=== PATIENT | male | born 1950 | race Caucasian/White ===

== ENCOUNTER 2018-03-11 08:15 | Outpatient (RCR) | payer MEDICARE, SELFPAY ==
--- NOTE | 2018-01-01 16:51 | PT.OIE ---
Current Diagnoses Soft tissue disorder, unspecified (01/01/18) Abnormal posture (01/01/18) Weakness (01/01/18) Provider Visit Care Team Role Provider Type Bari Hoang MD Family Provider Physician Primary Care Provider Specialty: Family Practice Address: [address] [place] [address], [id number] Email: Werner Sterling MD Attending Provider Physician Specialty: Orthopedic Surgery Address: [address] [place] [address], [id number] Email: [email or web address] Initial Evaluation PT-OP-A Visit Information Start: 01/01/18 09:05 Freq: Status: Active Protocol: Document 01/01/18 09:06 [facility] (Rec: 01/01/18 16:49 [facility] [id number]) Out-Patient Physical Therapy Visit Information Visit Information Visit Type Initial Evaluation Visit Start Time 09:06 Visit Stop Time 10:01 Total Visit Minutes 55 Visit Number 1 Number of ECHOCARDIOGRAPH TECHNICIAN Visits 0 Evaluation Information Evaluation Date 01/01/18 PT-OP-B Current Condition Start: 01/01/18 09:05 Freq: Status: Active Protocol: Document 01/01/18 09:06 [facility] (Rec: 01/01/18 09:14 [facility] [id number]) Current Condition History of Current Condition Onset Date 2 months History of Current Condition started with intense pain left c/s going across shoulder blade and top of shoulder, turned into a tingling a few weeks ago. Pain now less, tingling seems to be getting worse. Has been working out quite a bit in the gym, hasn't been doing neck stretches, but has been doing RC exercises. Only different thing was holding lateral raises for a few seconds because frustrated with not gaining strength. Additionally reports he has been bent over a lot doing weeding. Aggravated by any forward head and shoulder position/activities. Prior Treatments and Tests 3 x-rays [address] Dr[address] Sterling's office . Treatment Goals Patient/Caregiver Goals Minimize pain and tingling and return to usual activities without symptoms Prior Functional Status Baseline Function- ADL's Independent Baseline Function- Mobility Independent Baseline Function- Other chronic shoulder pain tong , s/ p bilateral surgeries. PT-OP-C Subjective Start: 01/01/18 09:05 Freq: Status: Active Protocol: Document 01/01/18 09:06 [facility] (Rec: 01/01/18 16:49 [facility] [id number]) OP-PT Pain Assessment Pain Assessment Grid Paper Pain Assessment Grid Completed Yes Location Left Shoulder Pain Location Details upper trap region Intensity 4 Scale Used Numeric (1 - 10) Description Aching Shooting Description- Other tingling Frequency Frequent Radiating Location up into neck and down across shoulder blade Pain Aggravating Factors Position Activity Pain Alleviating Factors None Patient Stated Pain Goal 0 Home Pain Medication Use Pain Medications Used No Pain Behaviors Pain Behaviors Facial Grimacing Guarding Wincing PT-OP-E Functional Tests Start: 01/01/18 16:07 Freq: Status: Active Protocol: Document 01/01/18 09:06 [facility] (Rec: 01/01/18 16:49 [facility] [id number]) Functional Tests Apley's Scratch Test Action 1: The subject is instructed to touch the opposite shoulder with his/her hand. This motion checks Glenohumeral adduction, internal rotation , horizontal adduction and scapular protraction Action 2: The subject is instructed to place his/her arm overhead and reach behind the neck to touch his/her upper back. This motion checks Glenohumeral abduction, external rotation and scapular upward rotation and elevation. Action 3: The subject puts his/her hand on the lower back and reaches upward as far as possible. This motion checks glenohumeral adduction, internal rotation and scapular retraction with downward rotation Action 1- Left top of shoulder Action 1- Right posterior shoulder Action 2- Left T10 Action 2- Right T7 Action 3- Left T10 Action 3- Right T7 PT-OP-F Manual Assessment Start: 01/01/18 16:07 Freq: Status: Active Protocol: Document 01/01/18 09:06 [facility] (Rec: 01/01/18 16:49 [facility] [id number]) Manual Assessments Soft Tissue Assessment Soft Tissue Mobility Assessment decreased mobility of upper traps tong, left greater than right Other Manual Assessments Other Manual Assessments palpable elevation of left rib PT-OP-H Neuro Start: 01/01/18 16:07 Freq: Status: Active Protocol: Document 01/01/18 09:06 [facility] (Rec: 01/01/18 16:49 [facility] [id number]) Sensation Evaluation Gross Sensation Gross Sensation WNL Sensation Description Tingling PT-OP-J Posture/Palpation/Skin Start: 01/01/18 16:07 Freq: Status: Active Protocol: Document 01/01/18 09:06 [facility] (Rec: 01/01/18 16:49 [facility] [id number]) Posture Evaluation Position Sitting Head/C-Spine Posture Forward Head T-Spine Posture Increased Kyphosis L-Spine Posture Flattened Shoulder Posture (L) Rounded (R) Rounded (L) Forward (R) Forward (L) Elevated Scapula Posture (L) Protracted (R) Protracted Arm Posture (L) Internally Rotated (R) Internally Rotated PT-OP-K Range of Motion Start: 01/01/18 16:07 Freq: Status: Active Protocol: Document 01/01/18 09:06 [facility] (Rec: 01/01/18 16:49 [facility] [id number]) Cervical Spine Range of Motion Cervical Spine Active Testing Position Sitting Flexion 48 Extension 50 Rotation Left 51 Rotation Right 62 Lateral Flexion Left 32 Lateral Flexion Right 45 ROM Limitations Soft Tissue Tightness Shoulder Goniometric Range of Motion Shoulder Measured in Degrees Active Shoulder ROM WFL Yes Testing Position Sitting PT-OP-L Special Tests Start: 01/01/18 16:07 Freq: Status: Active Protocol: Document 01/01/18 09:06 [facility] (Rec: 01/01/18 16:49 [facility] [id number]) Special Tests Cervical Spine Special Tests Traction Test Results negative for change in symptoms Passive Neck Flexion Test Results muscle tightness Foraminal Compression Test Results negative Upper Limb Tension Test Test Results positive left Shoulder Special Tests Drop Arm Rotator Cuff Test Results negative Elevation Impingement Test Results positive AC Joint Compression Test Results negative PT-OP-M Strength Start: 01/01/18 16:07 Freq: Status: Active Protocol: Document 01/01/18 09:06 [facility] (Rec: 01/01/18 16:49 [facility] [id number]) Cervical Spine Strength Cervical Spine Manual Muscle Testing Testing Position Sitting Flexion (C1-2) 4+ Good+ Extension 4+ Good+ Rotation Left 4+ Good+ Rotation Right 4+ Good+ Lateral Flexion Left (C3) 4+ Good+ Lateral Flexion Right (C3) 4+ Good+ Shoulder Strength Shoulder Manual Muscle Testing Left Flexion 5 Normal Extension 5 Normal Abduction (C5) 5 Normal Adduction 5 Normal External Rotation 4- Good- Internal Rotation 4 Good Right Flexion 5 Normal Extension 5 Normal Abduction (C5) 5 Normal Adduction 5 Normal External Rotation 4 Good Internal Rotation 4+ Good+ Hand Fresh Foods Technician/Pinch Strength Hand Dominance Hand Dominance Right Hand Strength Left Comments 87, 92, 86 Right Comments 100, 92, 100 PT-OP-Q Treatments Start: 01/01/18 16:07 Freq: Status: Active Protocol: Document 01/01/18 09:06 [facility] (Rec: 01/01/18 16:49 [facility] [id number]) Manual Therapy Treatment Soft Tissue Mobilization 1 Body Location cervical spine Mobilization Type Myofascial Release Intensity/Depth Moderate Body Position Supine Manual Traction Cervical Body Position Supine Reps/Duration 3 min Self-Care/Home Management Treatment Education Patient Education Home Exercise Program Other Education Patient instructed to resume supine anterior chest stretch, sidelying reach and roll, serratus punch, and neck stretches from prior HEP and work on decreasing activities with forward head and shoulders. PT-OP-R Modalities Start: 01/01/18 16:07 Freq: Status: Active Protocol: Document 01/01/18 09:06 [facility] (Rec: 01/01/18 16:49 [facility] [id number]) Hot Pack/Cold Pack Treatment Hot Pack Location c/s Patient Position Hooklying Treatment Duration (minutes) 15 Patient Tolerance Good PT-OP-T Assessment and Plan Start: 01/01/18 16:07 Freq: Status: Active Protocol: Document 01/01/18 09:06 [facility] (Rec: 01/01/18 16:49 [facility] [id number]) Physical Therapy Assessment Rehab Potential Rehabilitation Potential Good Evaluation Complexity Number of Personal Factors/Comorbidities 1-2 Number of Body Systems Impaired 3 Clinical Presentation at Evaluation Evolving Impairments Impairments Activity Tolerance Functional Activities Pain Posture Goals Three Impairment activity tolerance Short Term Goal (STG) Patient will resume 50% of usual activities without an increase in symptoms STG Duration 6 wks Shelter Goal (LTG) Patient will resume 100% of usual activities without an increase in symptoms Two Impairment posture Short Term Goal (STG) Patient will demonstrate improved postural alignment and awareness; be able to self -correct with cues STG Duration 6 wks Subcontract Administrator Goal (LTG) Patient will demonstrate improved postural habits and body mechanics for usual activities One Impairment neck disability index score Short Term Goal (STG) Decrease score from 28 to 18 STG Duration 6 wks Subcontract Administrator Goal (LTG) Decrease score to no greater than 5% with resumption of all usual activities LTG Duration 12 wks Assessment Summary Assessment Patient presents with function -limiting pain in cervical spine and shoulder on left which appears postural/ positional and activity related, as well as due to muscle imbalance which have elvated his left rib and caused nerve compression due to soft tissue tightness in left cervical spine and shoulder. should benefit from PT for pain management, flexibility, manual techniques , ther ex, modalities PRN Physical Therapy Plan Frequency and Duration Frequency of Treatment 2x/Week Duration of Treatment 3 months Plan of Care Start Date 01/01/18 Plan of Care End Date 04/03/18 Therapeutic Interventions Therapeutic Interventions Home Exercise Program Manual Therapy Neuromuscular Re-education Patient/Caregiver Education Self-Care/Home Management Soft Tissue Mobilization Taping Therapeutic Activities Therapeutic Exercises Modalities Cold Pack/Ice Massage Electric Stimulation Hot Packs Infrared Therapy Iontophoresis Traction- Mechanical Ultrasound Other Therapeutic Interventions nerve gliding and flossing Please Sign and Return: I have reviewed this Plan of Care and certify that the skilled therapy services above are required to meet the patient???s needs. Physician Signature Date Printed Name and Credentials Clinical Instructor Signature Printed Name and Credentials
--- NOTE | 2018-01-01 16:51 | PT.OPPOC ---
Current Diagnoses Soft tissue disorder, unspecified (01/01/18) Abnormal posture (01/01/18) Weakness (01/01/18) Provider Visit Care Team Role Provider Type Bari Hoang MD Family Provider Physician Primary Care Provider Specialty: Family Practice Address: [address] [place] [address], [phone] Email: Werner Sterling MD Attending Provider Physician Specialty: Orthopedic Surgery Address: [address] [place] [address], [phone] Email: [email or web address] Plan Of Care PT-OP-T Assessment and Plan Start: 01/01/18 16:07 Freq: Status: Active Protocol: Document 01/01/18 09:06 [facility] (Rec: 01/01/18 16:49 [facility] [id number]) Physical Therapy Assessment Rehab Potential Rehabilitation Potential Good Evaluation Complexity Number of Personal Factors/Comorbidities 1-2 Number of Body Systems Impaired 3 Clinical Presentation at Evaluation Evolving Impairments Impairments Activity Tolerance Functional Activities Pain Posture Goals Three Impairment activity tolerance Short Term Goal (STG) Patient will resume 50% of usual activities without an increase in symptoms STG Duration 6 wks Residential Goal (LTG) Patient will resume 100% of usual activities without an increase in symptoms Two Impairment posture Short Term Goal (STG) Patient will demonstrate improved postural alignment and awareness; be able to self -correct with cues STG Duration 6 wks Diesel Crane Operator Goal (LTG) Patient will demonstrate improved postural habits and body mechanics for usual activities One Impairment neck disability index score Short Term Goal (STG) Decrease score from 28 to 18 STG Duration 6 wks Residential Goal (LTG) Decrease score to no greater than 5% with resumption of all usual activities LTG Duration 12 wks Assessment Summary Assessment Patient presents with function -limiting pain in cervical spine and shoulder on left which appears postural/ positional and activity related, as well as due to muscle imbalance which have elvated his left rib and caused nerve compression due to soft tissue tightness in left cervical spine and shoulder. should benefit from PT for pain management, flexibility, manual techniques , ther ex, modalities PRN Physical Therapy Plan Frequency and Duration Frequency of Treatment 2x/Week Duration of Treatment 3 months Plan of Care Start Date 01/01/18 Plan of Care End Date 04/03/18 Therapeutic Interventions Therapeutic Interventions Home Exercise Program Manual Therapy Neuromuscular Re-education Patient/Caregiver Education Self-Care/Home Management Soft Tissue Mobilization Taping Therapeutic Activities Therapeutic Exercises Modalities Cold Pack/Ice Massage Electric Stimulation Hot Packs Infrared Therapy Iontophoresis Traction- Mechanical Ultrasound Other Therapeutic Interventions nerve gliding and flossing Plan of Care Dates Plan of Care Start Date 01/01/18 Plan of Care End Date 04/03/18 Please Sign and Return: I have reviewed this Plan of Care and certify that the skilled therapy services above are required to meet the patient???s needs. Physician Signature Date Printed Name and Credentials Clinical Instructor Signature Printed Name and Credentials
--- NOTE | 2018-01-05 09:26 | PT.OTN ---
Physical Therapy Treatment Note PT-OP-A Visit Information Start: 01/01/18 09:05 Freq: Status: Active Protocol: Document 01/05/18 08:12 [facility] (Rec: 01/05/18 09:00 [facility] [id number]) Out-Patient Physical Therapy Visit Information Visit Information Visit Type Treatment Note Visit Start Time 08:13 Visit Stop Time 09:13 Total Visit Minutes 60 Visit Number 2 Number of SPECIAL CLIENT BUS DRIVER Visits 0 Evaluation Information Evaluation Date 01/01/18 PT-OP-B Current Condition Start: 01/01/18 09:05 Freq: Status: Active Protocol: Document 01/01/18 09:06 [facility] (Rec: 01/01/18 09:14 [facility] [id number]) Current Condition History of Current Condition Onset Date 2 months History of Current Condition started with intense pain left c/s going across shoulder blade and top of shoulder, turned into a tingling a few weeks ago. Pain now less, tingling seems to be getting worse. Has been working out quite a bit in the gym, hasn't been doing neck stretches, but has been doing RC exercises. Only different thing was holding lateral raises for a few seconds because frustrated with not gaining strength. Additionally reports he has been bent over a lot doing weeding. Aggravated by any forward head and shoulder position/activities. Prior Treatments and Tests 3 x-rays [address] Dr[address] Sterling's office . Treatment Goals Patient/Caregiver Goals Minimize pain and tingling and return to usual activities without symptoms Prior Functional Status Baseline Function- ADL's Independent Baseline Function- Mobility Independent Baseline Function- Other chronic shoulder pain tong , s/ p bilateral surgeries. PT-OP-C Subjective Start: 01/01/18 09:05 Freq: Status: Active Protocol: Document 01/05/18 08:12 [facility] (Rec: 01/05/18 09:00 [facility] [id number]) OP-PT Subjective Patient Comments Patient Comments Doing yard projects over weekend, slipped and fell, hitting chest on wheelbarrow. Chest sore but improving Backing off resistance with exercises and trying to stretch more as instructed. No change in symptoms. OP-PT Pain Assessment Pain Behaviors Pain Behaviors Wincing PT-OP-E Functional Tests Start: 01/01/18 16:07 Freq: Status: Active Protocol: Document 01/01/18 09:06 [facility] (Rec: 01/01/18 16:49 [facility] [id number]) Functional Tests Apley's Scratch Test Action 1: The subject is instructed to touch the opposite shoulder with his/her hand. This motion checks Glenohumeral adduction, internal rotation , horizontal adduction and scapular protraction Action 2: The subject is instructed to place his/her arm overhead and reach behind the neck to touch his/her upper back. This motion checks Glenohumeral abduction, external rotation and scapular upward rotation and elevation. Action 3: The subject puts his/her hand on the lower back and reaches upward as far as possible. This motion checks glenohumeral adduction, internal rotation and scapular retraction with downward rotation Action 1- Left top of shoulder Action 1- Right posterior shoulder Action 2- Left T10 Action 2- Right T7 Action 3- Left T10 Action 3- Right T7 PT-OP-F Manual Assessment Start: 01/01/18 16:07 Freq: Status: Active Protocol: Document 01/01/18 09:06 [facility] (Rec: 01/01/18 16:49 [facility] [id number]) Manual Assessments Soft Tissue Assessment Soft Tissue Mobility Assessment decreased mobility of upper traps tong, left greater than right Other Manual Assessments Other Manual Assessments palpable elevation of left rib PT-OP-H Neuro Start: 01/01/18 16:07 Freq: Status: Active Protocol: Document 01/01/18 09:06 [facility] (Rec: 01/01/18 16:49 [facility] [id number]) Sensation Evaluation Gross Sensation Gross Sensation WNL Sensation Description Tingling PT-OP-J Posture/Palpation/Skin Start: 01/01/18 16:07 Freq: Status: Active Protocol: Document 01/01/18 09:06 [facility] (Rec: 01/01/18 16:49 [facility] [id number]) Posture Evaluation Position Sitting Head/C-Spine Posture Forward Head T-Spine Posture Increased Kyphosis L-Spine Posture Flattened Shoulder Posture (L) Rounded (R) Rounded (L) Forward (R) Forward (L) Elevated Scapula Posture (L) Protracted (R) Protracted Arm Posture (L) Internally Rotated (R) Internally Rotated PT-OP-K Range of Motion Start: 01/01/18 16:07 Freq: Status: Active Protocol: Document 01/01/18 09:06 [facility] (Rec: 01/01/18 16:49 [facility] [id number]) Cervical Spine Range of Motion Cervical Spine Active Testing Position Sitting Flexion 48 Extension 50 Rotation Left 51 Rotation Right 62 Lateral Flexion Left 32 Lateral Flexion Right 45 ROM Limitations Soft Tissue Tightness Shoulder Goniometric Range of Motion Shoulder Measured in Degrees Active Shoulder ROM WFL Yes Testing Position Sitting PT-OP-L Special Tests Start: 01/01/18 16:07 Freq: Status: Active Protocol: Document 01/01/18 09:06 [facility] (Rec: 01/01/18 16:49 [facility] [id number]) Special Tests Cervical Spine Special Tests Traction Test Results negative for change in symptoms Passive Neck Flexion Test Results muscle tightness Foraminal Compression Test Results negative Upper Limb Tension Test Test Results positive left Shoulder Special Tests Drop Arm Rotator Cuff Test Results negative Elevation Impingement Test Results positive AC Joint Compression Test Results negative PT-OP-M Strength Start: 01/01/18 16:07 Freq: Status: Active Protocol: Document 01/01/18 09:06 [facility] (Rec: 01/01/18 16:49 [facility] [id number]) Cervical Spine Strength Cervical Spine Manual Muscle Testing Testing Position Sitting Flexion (C1-2) 4+ Good+ Extension 4+ Good+ Rotation Left 4+ Good+ Rotation Right 4+ Good+ Lateral Flexion Left (C3) 4+ Good+ Lateral Flexion Right (C3) 4+ Good+ Shoulder Strength Shoulder Manual Muscle Testing Left Flexion 5 Normal Extension 5 Normal Abduction (C5) 5 Normal Adduction 5 Normal External Rotation 4- Good- Internal Rotation 4 Good Right Flexion 5 Normal Extension 5 Normal Abduction (C5) 5 Normal Adduction 5 Normal External Rotation 4 Good Internal Rotation 4+ Good+ Hand Manager Diabetes/Pinch Strength Hand Dominance Hand Dominance Right Hand Strength Left Comments 87, 92, 86 Right Comments 100, 92, 100 PT-OP-Q Treatments Start: 01/01/18 16:07 Freq: Status: Active Protocol: Document 01/05/18 08:12 [facility] (Rec: 01/05/18 09:00 [facility] [id number]) Gym Equipment Therapeutic Ball 2 Exercise Details supine pec and lat stretch Body Position Supine Reps/Duration 2 Comments 10 active ROM followed by 2 stretches 1 Exercise Details prone I's, T's, Y's Body Position Prone Reps/Duration 12 Comments verbal and manual cues Therapeutic Exercises Sidelying Exercises 3 Sidelying Exercise Name Shoulder ER Side bilateral Resistance 2 Reps/Minutes 10 2 Sidelying Exercise Name reach and roll with manual facilitation Side bilateral Reps/Minutes 5 Comments manual guidance and end-range stretch 1 Sidelying Exercise Name shoulder abd Side bilateral Reps/Minutes 10 Comments end range stretch last 2 reps Sitting Exercises 2 Sitting Exercise Name median and radial nerv glides Side left Reps/Minutes 5 1 Sitting Exercise Name UT and levator stretch Side bilateral Reps/Minutes 2 Standing Exercises 1 Standing Exercise Name cable shoulder ER Side right Reps/Minutes 10 Comments left shoulder and chest painful Manual Therapy Treatment Soft Tissue Mobilization 1 Body Location c/s and upper trap left, also gentle c/s manual traction Mobilization Type Rolling Intensity/Depth Moderate Body Position Supine Joint Mobilizations 1 Joint upper thoracic spine Grade II Body Position Prone Reps/Duration 0 Comments initiate next treatment PT-OP-R Modalities Start: 01/01/18 16:07 Freq: Status: Active Protocol: Document 01/05/18 08:12 [facility] (Rec: 01/05/18 09:22 [facility] [id number]) Hot Pack/Cold Pack Treatment Cold Pack Location left shoulder Patient Position Hooklying Treatment Duration (minutes) 15 Hot Pack Location left anterior ribs/chest Patient Position Hooklying Treatment Duration (minutes) 15 Patient Tolerance Good PT-OP-T Assessment and Plan Start: 01/01/18 16:07 Freq: Status: Active Protocol: Document 01/05/18 08:12 [facility] (Rec: 01/05/18 09:26 [facility] [id number]) Physical Therapy Assessment Assessment Summary Assessment No change in symptoms, patient is modifying his workouts per recommendations. Was also reminded about importance of posture as his symptoms usually come on when bent over , and was found in waiting room with highly flexed neck and rounded shoulder posture readying. Habitual posturing and movement in addition to workout routine contributing to his pain. Improved first rib position left. Physical Therapy Plan Frequency and Duration Frequency of Treatment 2x/Week Duration of Treatment 3 months Plan of Care Start Date 01/01/18 Plan of Care End Date 04/03/18 Therapeutic Interventions Therapeutic Interventions Home Exercise Program Manual Therapy Neuromuscular Re-education Patient/Caregiver Education Self-Care/Home Management Soft Tissue Mobilization Taping Therapeutic Activities Therapeutic Exercises Modalities Cold Pack/Ice Massage Electric Stimulation Hot Packs Infrared Therapy Iontophoresis Traction- Mechanical Ultrasound Other Therapeutic Interventions nerve gliding and flossing Next Visit Focus/Plan Next Note Type Treatment Note Next Visit Plan Progress with postural education, therapeutic exercises for postural correction, manual therapy to improve thoracic mobility. Please Sign and Return: I have reviewed this Plan of Care and certify that the skilled therapy services above are required to meet the patient???s needs. Physician Signature Date Printed Name and Credentials Clinical Instructor Signature Printed Name and Credentials
--- NOTE | 2018-01-08 09:46 | PT.OTN ---
Physical Therapy Treatment Note PT-OP-A Visit Information Start: 01/01/18 09:05 Freq: Status: Active Protocol: Document 01/07/18 13:00 [facility] (Rec: 01/08/18 09:46 [facility] [id number]) Out-Patient Physical Therapy Visit Information Visit Information Visit Type Treatment Note Visit Start Time 13:00 Visit Stop Time 13:53 Total Visit Minutes 53 Visit Number 3/10 Number of MICROCHIP SPECIALIST Visits 0 PT-OP-B Current Condition Start: 01/01/18 09:05 Freq: Status: Active Protocol: Document 01/01/18 09:06 [facility] (Rec: 01/01/18 09:14 [facility] [id number]) Current Condition History of Current Condition Onset Date 2 months History of Current Condition started with intense pain left c/s going across shoulder blade and top of shoulder, turned into a tingling a few weeks ago. Pain now less, tingling seems to be getting worse. Has been working out quite a bit in the gym, hasn't been doing neck stretches, but has been doing RC exercises. Only different thing was holding lateral raises for a few seconds because frustrated with not gaining strength. Additionally reports he has been bent over a lot doing weeding. Aggravated by any forward head and shoulder position/activities. Prior Treatments and Tests 3 x-rays [address] Dr. Sterling's office . Treatment Goals Patient/Caregiver Goals Minimize pain and tingling and return to usual activities without symptoms Prior Functional Status Baseline Function- ADL's Independent Baseline Function- Mobility Independent Baseline Function- Other chronic shoulder pain tong , s/ p bilateral surgeries. PT-OP-C Subjective Start: 01/01/18 09:05 Freq: Status: Active Protocol: Document 01/07/18 13:00 [facility] (Rec: 01/08/18 09:46 [facility] [id number]) OP-PT Subjective Patient Comments Patient Comments Feel a little better for the first time. Patient Reported Progress Improving PT-OP-E Functional Tests Start: 01/01/18 16:07 Freq: Status: Active Protocol: Document 01/01/18 09:06 [facility] (Rec: 01/01/18 16:49 [facility] [id number]) Functional Tests Osmel's Scratch Test Action 1: The subject is instructed to touch the opposite shoulder with his/her hand. This motion checks Glenohumeral adduction, internal rotation , horizontal adduction and scapular protraction Action 2: The subject is instructed to place his/her arm overhead and reach behind the neck to touch his/her upper back. This motion checks Glenohumeral abduction, external rotation and scapular upward rotation and elevation. Action 3: The subject puts his/her hand on the lower back and reaches upward as far as possible. This motion checks glenohumeral adduction, internal rotation and scapular retraction with downward rotation Action 1- Left top of shoulder Action 1- Right posterior shoulder Action 2- Left T10 Action 2- Right T7 Action 3- Left T10 Action 3- Right T7 PT-OP-F Manual Assessment Start: 01/01/18 16:07 Freq: Status: Active Protocol: Document 01/01/18 09:06 [facility] (Rec: 01/01/18 16:49 [facility] [id number]) Manual Assessments Soft Tissue Assessment Soft Tissue Mobility Assessment decreased mobility of upper traps tong, left greater than right Other Manual Assessments Other Manual Assessments palpable elevation of left rib PT-OP-H Neuro Start: 01/01/18 16:07 Freq: Status: Active Protocol: Document 01/01/18 09:06 [facility] (Rec: 01/01/18 16:49 [facility] [id number]) Sensation Evaluation Gross Sensation Gross Sensation WNL Sensation Description Tingling PT-OP-J Posture/Palpation/Skin Start: 01/01/18 16:07 Freq: Status: Active Protocol: Document 01/01/18 09:06 [facility] (Rec: 01/01/18 16:49 [facility] [id number]) Posture Evaluation Position Sitting Head/C-Spine Posture Forward Head T-Spine Posture Increased Kyphosis L-Spine Posture Flattened Shoulder Posture (L) Rounded (R) Rounded (L) Forward (R) Forward (L) Elevated Scapula Posture (L) Protracted (R) Protracted Arm Posture (L) Internally Rotated (R) Internally Rotated PT-OP-K Range of Motion Start: 01/01/18 16:07 Freq: Status: Active Protocol: Document 01/01/18 09:06 [facility] (Rec: 01/01/18 16:49 [facility] [id number]) Cervical Spine Range of Motion Cervical Spine Active Testing Position Sitting Flexion 48 Extension 50 Rotation Left 51 Rotation Right 62 Lateral Flexion Left 32 Lateral Flexion Right 45 ROM Limitations Soft Tissue Tightness Shoulder Goniometric Range of Motion Shoulder Measured in Degrees Active Shoulder ROM WFL Yes Testing Position Sitting PT-OP-L Special Tests Start: 01/01/18 16:07 Freq: Status: Active Protocol: Document 01/01/18 09:06 [facility] (Rec: 01/01/18 16:49 [facility] [id number]) Special Tests Cervical Spine Special Tests Traction Test Results negative for change in symptoms Passive Neck Flexion Test Results muscle tightness Foraminal Compression Test Results negative Upper Limb Tension Test Test Results positive left Shoulder Special Tests Drop Arm Rotator Cuff Test Results negative Elevation Impingement Test Results positive AC Joint Compression Test Results negative PT-OP-M Strength Start: 01/01/18 16:07 Freq: Status: Active Protocol: Document 01/01/18 09:06 [facility] (Rec: 01/01/18 16:49 [facility] [id number]) Cervical Spine Strength Cervical Spine Manual Muscle Testing Testing Position Sitting Flexion (C1-2) 4+ Good+ Extension 4+ Good+ Rotation Left 4+ Good+ Rotation Right 4+ Good+ Lateral Flexion Left (C3) 4+ Good+ Lateral Flexion Right (C3) 4+ Good+ Shoulder Strength Shoulder Manual Muscle Testing Left Flexion 5 Normal Extension 5 Normal Abduction (C5) 5 Normal Adduction 5 Normal External Rotation 4- Good- Internal Rotation 4 Good Right Flexion 5 Normal Extension 5 Normal Abduction (C5) 5 Normal Adduction 5 Normal External Rotation 4 Good Internal Rotation 4+ Good+ Hand Forest Firefighter/Pinch Strength Hand Dominance Hand Dominance Right Hand Strength Left Comments 87, 92, 86 Right Comments 100, 92, 100 PT-OP-Q Treatments Start: 01/01/18 16:07 Freq: Status: Active Protocol: Document 01/07/18 13:00 [facility] (Rec: 01/08/18 09:46 [facility] [id number]) Therapeutic Exercises Sidelying Exercises 3 Sidelying Exercise Name Shoulder ER Side bilateral Resistance 2 Reps/Minutes 10 2 Sidelying Exercise Name reach and roll with manual facilitation Side bilateral Reps/Minutes 5 Comments manual guidance and end-range stretch 1 Sidelying Exercise Name shoulder abd Side bilateral Reps/Minutes 10 Comments end range stretch last 2 reps Sitting Exercises 1 Sitting Exercise Name UT and levator stretch Side bilateral Reps/Minutes 2 Manual Therapy Treatment Soft Tissue Mobilization 1 Body Location c/s and upper trap left, also gentle c/s manual traction Mobilization Type Rolling Intensity/Depth Moderate Body Position Supine Joint Mobilizations 1 Joint upper thoracic spine Grade II Body Position Prone Reps/Duration 5 min Comments initiate next treatment PT-OP-R Modalities Start: 01/01/18 16:07 Freq: Status: Active Protocol: Document 01/07/18 13:00 [facility] (Rec: 01/08/18 09:46 [facility] [id number]) Electric Stimulation Electric Stimulation Interferential Current (IFC) Body Location left upper trap and shoulder Duration (Minutes) 15 Intensity 15 Target/Sweep Sweep Patient Position Hooklying Combined With Heat/Cold Hot Pack Ultrasound Therapy Treatment Left Shoulder Treatment Duration (minutes) 8 Patient Position Sitting Coupling Medium Ultrasound Gel Frequency Setting (mHz) 1 Mode Setting Continuous Duty Cycle 100% Intensity Setting (w/cm2) 1.3 PT-OP-T Assessment and Plan Start: 01/01/18 16:07 Freq: Status: Active Protocol: Document 01/07/18 13:00 [facility] (Rec: 01/08/18 09:46 [facility] [id number]) Physical Therapy Assessment Progress Towards Goals Progress Towards Goals Progressing Toward Goals Physical Therapy Plan Frequency and Duration Frequency of Treatment 2x/Week Duration of Treatment 3 months Plan of Care Start Date 01/01/18 Plan of Care End Date 04/03/18 Therapeutic Interventions Therapeutic Interventions Home Exercise Program Manual Therapy Neuromuscular Re-education Patient/Caregiver Education Self-Care/Home Management Soft Tissue Mobilization Taping Therapeutic Activities Therapeutic Exercises Modalities Cold Pack/Ice Massage Electric Stimulation Hot Packs Infrared Therapy Iontophoresis Traction- Mechanical Ultrasound Other Therapeutic Interventions nerve gliding and flossing Next Visit Focus/Plan Next Note Type Treatment Note Next Visit Plan Continue PT per POC for pain reduction, and to address deficits in soft tissue mobility, posture, ROM for improved function. Please Sign and Return: I have reviewed this Plan of Care and certify that the skilled therapy services above are required to meet the patient?s needs. Physician Signature Date Printed Name and Credentials Clinical Instructor Signature Printed Name and Credentials
--- NOTE | 2018-02-05 16:43 | PT.OTN ---
Current Diagnoses Impingement syndrome of left shoulder (02/05/18) Physical Therapy Treatment Note PT-OP-A Visit Information Start: 01/01/18 09:05 Freq: Status: Active Protocol: Document 02/05/18 16:34 [facility] (Rec: 02/05/18 16:43 [facility] [id number]) Out-Patient Physical Therapy Visit Information Visit Information Visit Type Treatment Note Visit Start Time 08:15 Visit Stop Time 09:13 Total Visit Minutes 58 Visit Number 4/10 Number of CHAIR MECHANIC Visits 0 PT-OP-B Current Condition Start: 01/01/18 09:05 Freq: Status: Active Protocol: Document 01/01/18 09:06 [facility] (Rec: 01/01/18 09:14 [facility] [id number]) Current Condition History of Current Condition Onset Date 2 months History of Current Condition started with intense pain left c/s going across shoulder blade and top of shoulder, turned into a tingling a few weeks ago. Pain now less, tingling seems to be getting worse. Has been working out quite a bit in the gym, hasn't been doing neck stretches, but has been doing RC exercises. Only different thing was holding lateral raises for a few seconds because frustrated with not gaining strength. Additionally reports he has been bent over a lot doing weeding. Aggravated by any forward head and shoulder position/activities. Prior Treatments and Tests [address] x-[address] Sterling's office . Treatment Goals Patient/Caregiver Goals Minimize pain and tingling and return to usual activities without symptoms Prior Functional Status Baseline Function- ADL's Independent Baseline Function- Mobility Independent Baseline Function- Other chronic shoulder pain tong , s/ p bilateral surgeries. PT-OP-C Subjective Start: 01/01/18 09:05 Freq: Status: Active Protocol: Document 02/05/18 16:34 [facility] (Rec: 02/05/18 16:43 [facility] [id number]) OP-PT Subjective Patient Comments Patient Comments Reports has been doing HEP with modifications as instructed. Patient Reported Progress Improving PT-OP-E Functional Tests Start: 01/01/18 16:07 Freq: Status: Active Protocol: Document 01/01/18 09:06 [facility] (Rec: 01/01/18 16:49 [facility] [id number]) Functional Tests Osmel's Scratch Test Action 1: The subject is instructed to touch the opposite shoulder with his/her hand. This motion checks Glenohumeral adduction, internal rotation , horizontal adduction and scapular protraction Action 2: The subject is instructed to place his/her arm overhead and reach behind the neck to touch his/her upper back. This motion checks Glenohumeral abduction, external rotation and scapular upward rotation and elevation. Action 3: The subject puts his/her hand on the lower back and reaches upward as far as possible. This motion checks glenohumeral adduction, internal rotation and scapular retraction with downward rotation Action 1- Left top of shoulder Action 1- Right posterior shoulder Action 2- Left T10 Action 2- Right T7 Action 3- Left T10 Action 3- Right T7 PT-OP-F Manual Assessment Start: 01/01/18 16:07 Freq: Status: Active Protocol: Document 01/01/18 09:06 [facility] (Rec: 01/01/18 16:49 [facility] [id number]) Manual Assessments Soft Tissue Assessment Soft Tissue Mobility Assessment decreased mobility of upper traps tong, left greater than right Other Manual Assessments Other Manual Assessments palpable elevation of left rib PT-OP-H Neuro Start: 01/01/18 16:07 Freq: Status: Active Protocol: Document 01/01/18 09:06 [facility] (Rec: 01/01/18 16:49 [facility] [id number]) Sensation Evaluation Gross Sensation Gross Sensation WNL Sensation Description Tingling PT-OP-J Posture/Palpation/Skin Start: 01/01/18 16:07 Freq: Status: Active Protocol: Document 01/01/18 09:06 [facility] (Rec: 01/01/18 16:49 [facility] [id number]) Posture Evaluation Position Sitting Head/C-Spine Posture Forward Head T-Spine Posture Increased Kyphosis L-Spine Posture Flattened Shoulder Posture (L) Rounded (R) Rounded (L) Forward (R) Forward (L) Elevated Scapula Posture (L) Protracted (R) Protracted Arm Posture (L) Internally Rotated (R) Internally Rotated PT-OP-K Range of Motion Start: 01/01/18 16:07 Freq: Status: Active Protocol: Document 01/01/18 09:06 [facility] (Rec: 01/01/18 16:49 [facility] [id number]) Cervical Spine Range of Motion Cervical Spine Active Testing Position Sitting Flexion 48 Extension 50 Rotation Left 51 Rotation Right 62 Lateral Flexion Left 32 Lateral Flexion Right 45 ROM Limitations Soft Tissue Tightness Shoulder Goniometric Range of Motion Shoulder Measured in Degrees Active Shoulder ROM WFL Yes Testing Position Sitting PT-OP-L Special Tests Start: 01/01/18 16:07 Freq: Status: Active Protocol: Document 01/01/18 09:06 [facility] (Rec: 01/01/18 16:49 [facility] [id number]) Special Tests Cervical Spine Special Tests Traction Test Results negative for change in symptoms Passive Neck Flexion Test Results muscle tightness Foraminal Compression Test Results negative Upper Limb Tension Test Test Results positive left Shoulder Special Tests Drop Arm Rotator Cuff Test Results negative Elevation Impingement Test Results positive AC Joint Compression Test Results negative PT-OP-M Strength Start: 01/01/18 16:07 Freq: Status: Active Protocol: Document 01/01/18 09:06 [facility] (Rec: 01/01/18 16:49 [facility] [id number]) Cervical Spine Strength Cervical Spine Manual Muscle Testing Testing Position Sitting Flexion (C1-2) 4+ Good+ Extension 4+ Good+ Rotation Left 4+ Good+ Rotation Right 4+ Good+ Lateral Flexion Left (C3) 4+ Good+ Lateral Flexion Right (C3) 4+ Good+ Shoulder Strength Shoulder Manual Muscle Testing Left Flexion 5 Normal Extension 5 Normal Abduction (C5) 5 Normal Adduction 5 Normal External Rotation 4- Good- Internal Rotation 4 Good Right Flexion 5 Normal Extension 5 Normal Abduction (C5) 5 Normal Adduction 5 Normal External Rotation 4 Good Internal Rotation 4+ Good+ Hand Orthopedics Nurse/Pinch Strength Hand Dominance Hand Dominance Right Hand Strength Left Comments 87, 92, 86 Right Comments 100, 92, 100 PT-OP-Q Treatments Start: 01/01/18 16:07 Freq: Status: Active Protocol: Document 02/05/18 16:34 [facility] (Rec: 02/05/18 16:43 [facility] [id number]) Therapeutic Exercises Supine Exercises 1 Supine Exercise Name pec and lat stretch supine on foam roller Comments with manual assist and incorporation of deep breathing Sidelying Exercises 3 Sidelying Exercise Name Shoulder ER Side bilateral Resistance 5 Reps/Minutes 10 2 Sidelying Exercise Name reach and roll with manual facilitation Side bilateral Reps/Minutes 5 Comments manual guidance and end-range stretch 1 Sidelying Exercise Name shoulder abd Side bilateral Reps/Minutes 10 Comments end range stretch last 2 reps Sitting Exercises 4 Sitting Exercise Name subtle posterior shoulder crease pull toward armpit Comments manual and verbal acues 3 Sitting Exercise Name scapular clock Comments manual facilitation 1 Sitting Exercise Name UT, levator, scalene stretch Reps/Minutes 2x Manual Therapy Treatment Soft Tissue Mobilization 1 Body Location c/s and upper trap left, also gentle c/s manual traction Mobilization Type Rolling Intensity/Depth Moderate Body Position Sitting PT-OP-R Modalities Start: 01/01/18 16:07 Freq: Status: Active Protocol: Document 02/05/18 16:34 [facility] (Rec: 02/05/18 16:43 [facility] [id number]) Electric Stimulation Electric Stimulation Interferential Current (IFC) Body Location left upper trap and shoulder Duration (Minutes) 15 Intensity 15 Target/Sweep Sweep Patient Position Hooklying Combined With Heat/Cold Hot Pack Ultrasound Therapy Treatment Left Shoulder Treatment Duration (minutes) 8 Patient Position Sitting Coupling Medium Ultrasound Gel Frequency Setting (mHz) 1 Mode Setting Continuous Duty Cycle 100% Intensity Setting (w/cm2) 1.3 PT-OP-T Assessment and Plan Start: 01/01/18 16:07 Freq: Status: Active Protocol: Document 02/05/18 16:34 [facility] (Rec: 02/05/18 16:43 [facility] [id number]) Physical Therapy Assessment Impairments Impairments Activity Tolerance Functional Activities Pain Posture Progress Towards Goals Progress Towards Goals Progressing Toward Goals Assessment Summary Assessment Tends to overuse upper traps, needs much verbal and manual cues for improved activation of lower traps and serratus Physical Therapy Plan Frequency and Duration Frequency of Treatment 2x/Week Duration of Treatment 3 months Plan of Care Start Date 01/01/18 Plan of Care End Date 04/03/18 Therapeutic Interventions Therapeutic Interventions Home Exercise Program Manual Therapy Neuromuscular Re-education Patient/Caregiver Education Self-Care/Home Management Soft Tissue Mobilization Taping Therapeutic Activities Therapeutic Exercises Modalities Cold Pack/Ice Massage Electric Stimulation Hot Packs Infrared Therapy Iontophoresis Traction- Mechanical Ultrasound Other Therapeutic Interventions nerve gliding and flossing Next Visit Focus/Plan Next Note Type Treatment Note Next Visit Plan review nerve glides, progress with muscle activation activities, body awareness, ther ex
--- NOTE | 2018-02-09 16:06 | PT.OTN ---
Current Diagnoses Impingement syndrome of left shoulder (02/09/18) Physical Therapy Treatment Note PT-OP-A Visit Information Start: 01/01/18 09:05 Freq: Status: Active Protocol: Document 02/09/18 08:13 [facility] (Rec: 02/09/18 09:00 [facility] [id number]) Out-Patient Physical Therapy Visit Information Visit Information Visit Type Treatment Note Visit Start Time 08:15 Visit Number 5/ PT-OP-B Current Condition Start: 01/01/18 09:05 Freq: Status: Active Protocol: Document 01/01/18 09:06 [facility] (Rec: 01/01/18 09:14 [facility] [id number]) Current Condition History of Current Condition Onset Date 2 months History of Current Condition started with intense pain left c/s going across shoulder blade and top of shoulder, turned into a tingling a few weeks ago. Pain now less, tingling seems to be getting worse. Has been working out quite a bit in the gym, hasn't been doing neck stretches, but has been doing RC exercises. Only different thing was holding lateral raises for a few seconds because frustrated with not gaining strength. Additionally reports he has been bent over a lot doing weeding. Aggravated by any forward head and shoulder position/activities. Prior Treatments and Tests 3 x-rays [address] Dr. Sterling's office . Treatment Goals Patient/Caregiver Goals Minimize pain and tingling and return to usual activities without symptoms Prior Functional Status Baseline Function- ADL's Independent Baseline Function- Mobility Independent Baseline Function- Other chronic shoulder pain tong , s/ p bilateral surgeries. PT-OP-C Subjective Start: 01/01/18 09:05 Freq: Status: Active Protocol: Document 02/09/18 08:13 [facility] (Rec: 02/09/18 09:00 [facility] [id number]) OP-PT Subjective Patient Comments Patient Comments No new c/o Patient Reported Progress Improving PT-OP-E Functional Tests Start: 01/01/18 16:07 Freq: Status: Active Protocol: Document 01/01/18 09:06 [facility] (Rec: 01/01/18 16:49 [facility] [id number]) Functional Tests Rose Maryey's Scratch Test Action 1: The subject is instructed to touch the opposite shoulder with his/her hand. This motion checks Glenohumeral adduction, internal rotation , horizontal adduction and scapular protraction Action 2: The subject is instructed to place his/her arm overhead and reach behind the neck to touch his/her upper back. This motion checks Glenohumeral abduction, external rotation and scapular upward rotation and elevation. Action 3: The subject puts his/her hand on the lower back and reaches upward as far as possible. This motion checks glenohumeral adduction, internal rotation and scapular retraction with downward rotation Action 1- Left top of shoulder Action 1- Right posterior shoulder Action 2- Left T10 Action 2- Right T7 Action 3- Left T10 Action 3- Right T7 PT-OP-F Manual Assessment Start: 01/01/18 16:07 Freq: Status: Active Protocol: Document 01/01/18 09:06 [facility] (Rec: 01/01/18 16:49 [facility] [id number]) Manual Assessments Soft Tissue Assessment Soft Tissue Mobility Assessment decreased mobility of upper traps tong, left greater than right Other Manual Assessments Other Manual Assessments palpable elevation of left rib PT-OP-H Neuro Start: 01/01/18 16:07 Freq: Status: Active Protocol: Document 01/01/18 09:06 [facility] (Rec: 01/01/18 16:49 [facility] [id number]) Sensation Evaluation Gross Sensation Gross Sensation WNL Sensation Description Tingling PT-OP-J Posture/Palpation/Skin Start: 01/01/18 16:07 Freq: Status: Active Protocol: Document 01/01/18 09:06 [facility] (Rec: 01/01/18 16:49 [facility] [id number]) Posture Evaluation Position Sitting Head/C-Spine Posture Forward Head T-Spine Posture Increased Kyphosis L-Spine Posture Flattened Shoulder Posture (L) Rounded (R) Rounded (L) Forward (R) Forward (L) Elevated Scapula Posture (L) Protracted (R) Protracted Arm Posture (L) Internally Rotated (R) Internally Rotated PT-OP-K Range of Motion Start: 01/01/18 16:07 Freq: Status: Active Protocol: Document 01/01/18 09:06 [facility] (Rec: 01/01/18 16:49 [facility] [id number]) Cervical Spine Range of Motion Cervical Spine Active Testing Position Sitting Flexion 48 Extension 50 Rotation Left 51 Rotation Right 62 Lateral Flexion Left 32 Lateral Flexion Right 45 ROM Limitations Soft Tissue Tightness Shoulder Goniometric Range of Motion Shoulder Measured in Degrees Active Shoulder ROM WFL Yes Testing Position Sitting PT-OP-L Special Tests Start: 01/01/18 16:07 Freq: Status: Active Protocol: Document 01/01/18 09:06 [facility] (Rec: 01/01/18 16:49 [facility] [id number]) Special Tests Cervical Spine Special Tests Traction Test Results negative for change in symptoms Passive Neck Flexion Test Results muscle tightness Foraminal Compression Test Results negative Upper Limb Tension Test Test Results positive left Shoulder Special Tests Drop Arm Rotator Cuff Test Results negative Elevation Impingement Test Results positive AC Joint Compression Test Results negative PT-OP-M Strength Start: 01/01/18 16:07 Freq: Status: Active Protocol: Document 01/01/18 09:06 [facility] (Rec: 01/01/18 16:49 [facility] [id number]) Cervical Spine Strength Cervical Spine Manual Muscle Testing Testing Position Sitting Flexion (C1-2) 4+ Good+ Extension 4+ Good+ Rotation Left 4+ Good+ Rotation Right 4+ Good+ Lateral Flexion Left (C3) 4+ Good+ Lateral Flexion Right (C3) 4+ Good+ Shoulder Strength Shoulder Manual Muscle Testing Left Flexion 5 Normal Extension 5 Normal Abduction (C5) 5 Normal Adduction 5 Normal External Rotation 4- Good- Internal Rotation 4 Good Right Flexion 5 Normal Extension 5 Normal Abduction (C5) 5 Normal Adduction 5 Normal External Rotation 4 Good Internal Rotation 4+ Good+ Hand Ivory Polisher/Pinch Strength Hand Dominance Hand Dominance Right Hand Strength Left Comments 87, 92, 86 Right Comments 100, 92, 100 PT-OP-Q Treatments Start: 01/01/18 16:07 Freq: Status: Active Protocol: Document 02/09/18 08:13 [facility] (Rec: 02/09/18 09:00 [facility] [id number]) Cardio Equipment Upper Body Ergometer (UBE) Duration (Minutes) 4 RPM 60 Height shoulder Therapeutic Exercises Supine Exercises 1 Supine Exercise Name pec and lat stretch supine on foam roller Comments with manual assist and incorporation of deep breathing Sidelying Exercises 2 Sidelying Exercise Name reach and roll with manual facilitation Side bilateral Reps/Minutes 5 Comments manual guidance and end-range stretch 1 Sidelying Exercise Name shoulder abd Side bilateral Reps/Minutes 10 Comments end range stretch last 2 reps Sitting Exercises 4 Sitting Exercise Name subtle posterior shoulder crease pull toward armpit Comments manual and verbal acues 3 Sitting Exercise Name scapular clock Comments manual facilitation 1 Sitting Exercise Name UT, levator, scalene stretch Reps/Minutes 2x Manual Therapy Treatment Soft Tissue Mobilization 1 Body Location c/s and upper trap left, also gentle c/s manual traction Mobilization Type Rolling Intensity/Depth Moderate Body Position Supine Joint Mobilizations 1 Joint scapulothoracic med and lateral glides Grade III Body Position Sidelying Manual Traction Cervical Body Position Supine Reps/Duration 3 min PT-OP-R Modalities Start: 01/01/18 16:07 Freq: Status: Active Protocol: Document 02/09/18 08:13 [facility] (Rec: 02/09/18 16:06 [facility] [id number]) Electric Stimulation Electric Stimulation Interferential Current (IFC) Body Location left upper trap and shoulder Duration (Minutes) 15 Intensity 15 Target/Sweep Sweep Patient Position Hooklying Combined With Heat/Cold Hot Pack Ultrasound Therapy Treatment Left Shoulder Treatment Duration (minutes) 8 Patient Position Sitting Coupling Medium Ultrasound Gel Frequency Setting (mHz) 1 Mode Setting Continuous Duty Cycle 100% Intensity Setting (w/cm2) 1.3 PT-OP-T Assessment and Plan Start: 01/01/18 16:07 Freq: Status: Active Protocol: Document 02/09/18 08:13 [facility] (Rec: 02/09/18 16:06 [facility] [id number]) Physical Therapy Assessment Impairments Impairments Activity Tolerance Functional Activities Pain Posture Goals Three Impairment activity tolerance Short Term Goal (STG) Patient will resume 50% of usual activities without an increase in symptoms STG Duration 6 wks Shelter Goal (LTG) Patient will resume 100% of usual activities without an increase in symptoms Two Impairment posture Short Term Goal (STG) Patient will demonstrate improved postural alignment and awareness; be able to self -correct with cues STG Duration 6 wks Investigator Goal (LTG) Patient will demonstrate improved postural habits and body mechanics for usual activities One Impairment neck disability index score Short Term Goal (STG) Decrease score from 28 to 18 STG Duration 6 wks Shelter Goal (LTG) Decrease score to no greater than 5% with resumption of all usual activities LTG Duration 12 wks Progress Towards Goals Progress Towards Goals Progressing Toward Goals Assessment Summary Assessment Good progress, patient demonstrating improved kinesthetic awareness Physical Therapy Plan Frequency and Duration Frequency of Treatment 2x/Week Duration of Treatment 3 months Plan of Care Start Date 01/01/18 Plan of Care End Date 04/03/18 Therapeutic Interventions Therapeutic Interventions Home Exercise Program Manual Therapy Neuromuscular Re-education Patient/Caregiver Education Self-Care/Home Management Soft Tissue Mobilization Taping Therapeutic Activities Therapeutic Exercises Modalities Cold Pack/Ice Massage Electric Stimulation Hot Packs Infrared Therapy Iontophoresis Traction- Mechanical Ultrasound Other Therapeutic Interventions nerve gliding and flossing Next Visit Focus/Plan Next Note Type Treatment Note Next Visit Plan review nerve glides, progress with muscle activation activities, body awareness, ther ex
--- NOTE | 2018-02-12 16:46 | PT.OTN ---
Current Diagnoses Impingement syndrome of left shoulder (02/12/18) Physical Therapy Treatment Note PT-OP-A Visit Information Start: 01/01/18 09:05 Freq: Status: Active Protocol: Document 02/12/18 08:21 [facility] (Rec: 02/12/18 16:46 [facility] [id number]) Out-Patient Physical Therapy Visit Information Visit Information Visit Type Treatment Note Visit Start Time 08:15 Visit Stop Time 09:15 Visit Number 6/10 Number of SEISMIC SURVEY ASSISTANT Visits 0 PT-OP-B Current Condition Start: 01/01/18 09:05 Freq: Status: Active Protocol: Document 01/01/18 09:06 [facility] (Rec: 01/01/18 09:14 [facility] [id number]) Current Condition History of Current Condition Onset Date 2 months History of Current Condition started with intense pain left c/s going across shoulder blade and top of shoulder, turned into a tingling a few weeks ago. Pain now less, tingling seems to be getting worse. Has been working out quite a bit in the gym, hasn't been doing neck stretches, but has been doing RC exercises. Only different thing was holding lateral raises for a few seconds because frustrated with not gaining strength. Additionally reports he has been bent over a lot doing weeding. Aggravated by any forward head and shoulder position/activities. Prior Treatments and Tests 3 x-rays [address] Dr[address] Sterling's office . Treatment Goals Patient/Caregiver Goals Minimize pain and tingling and return to usual activities without symptoms Prior Functional Status Baseline Function- ADL's Independent Baseline Function- Mobility Independent Baseline Function- Other chronic shoulder pain tong , s/ p bilateral surgeries. PT-OP-C Subjective Start: 01/01/18 09:05 Freq: Status: Active Protocol: Document 02/12/18 08:21 [facility] (Rec: 02/12/18 09:01 [facility] [id number]) OP-PT Subjective Patient Comments Patient Comments Continues to work on not overdoing it, pain decreasing, minimal today. Patient Reported Progress Improving PT-OP-E Functional Tests Start: 01/01/18 16:07 Freq: Status: Active Protocol: Document 01/01/18 09:06 [facility] (Rec: 01/01/18 16:49 [facility] [id number]) Functional Tests Osmel's Scratch Test Action 1: The subject is instructed to touch the opposite shoulder with his/her hand. This motion checks Glenohumeral adduction, internal rotation , horizontal adduction and scapular protraction Action 2: The subject is instructed to place his/her arm overhead and reach behind the neck to touch his/her upper back. This motion checks Glenohumeral abduction, external rotation and scapular upward rotation and elevation. Action 3: The subject puts his/her hand on the lower back and reaches upward as far as possible. This motion checks glenohumeral adduction, internal rotation and scapular retraction with downward rotation Action 1- Left top of shoulder Action 1- Right posterior shoulder Action 2- Left T10 Action 2- Right T7 Action 3- Left T10 Action 3- Right T7 PT-OP-F Manual Assessment Start: 01/01/18 16:07 Freq: Status: Active Protocol: Document 01/01/18 09:06 [facility] (Rec: 01/01/18 16:49 [facility] [id number]) Manual Assessments Soft Tissue Assessment Soft Tissue Mobility Assessment decreased mobility of upper traps tong, left greater than right Other Manual Assessments Other Manual Assessments palpable elevation of left rib PT-OP-H Neuro Start: 01/01/18 16:07 Freq: Status: Active Protocol: Document 01/01/18 09:06 [facility] (Rec: 01/01/18 16:49 [facility] [id number]) Sensation Evaluation Gross Sensation Gross Sensation WNL Sensation Description Tingling PT-OP-J Posture/Palpation/Skin Start: 01/01/18 16:07 Freq: Status: Active Protocol: Document 01/01/18 09:06 [facility] (Rec: 01/01/18 16:49 [facility] [id number]) Posture Evaluation Position Sitting Head/C-Spine Posture Forward Head T-Spine Posture Increased Kyphosis L-Spine Posture Flattened Shoulder Posture (L) Rounded (R) Rounded (L) Forward (R) Forward (L) Elevated Scapula Posture (L) Protracted (R) Protracted Arm Posture (L) Internally Rotated (R) Internally Rotated PT-OP-K Range of Motion Start: 01/01/18 16:07 Freq: Status: Active Protocol: Document 01/01/18 09:06 [facility] (Rec: 01/01/18 16:49 [facility] [id number]) Cervical Spine Range of Motion Cervical Spine Active Testing Position Sitting Flexion 48 Extension 50 Rotation Left 51 Rotation Right 62 Lateral Flexion Left 32 Lateral Flexion Right 45 ROM Limitations Soft Tissue Tightness Shoulder Goniometric Range of Motion Shoulder Measured in Degrees Active Shoulder ROM WFL Yes Testing Position Sitting PT-OP-L Special Tests Start: 01/01/18 16:07 Freq: Status: Active Protocol: Document 01/01/18 09:06 [facility] (Rec: 01/01/18 16:49 [facility] [id number]) Special Tests Cervical Spine Special Tests Traction Test Results negative for change in symptoms Passive Neck Flexion Test Results muscle tightness Foraminal Compression Test Results negative Upper Limb Tension Test Test Results positive left Shoulder Special Tests Drop Arm Rotator Cuff Test Results negative Elevation Impingement Test Results positive AC Joint Compression Test Results negative PT-OP-M Strength Start: 01/01/18 16:07 Freq: Status: Active Protocol: Document 01/01/18 09:06 [facility] (Rec: 01/01/18 16:49 [facility] [id number]) Cervical Spine Strength Cervical Spine Manual Muscle Testing Testing Position Sitting Flexion (C1-2) 4+ Good+ Extension 4+ Good+ Rotation Left 4+ Good+ Rotation Right 4+ Good+ Lateral Flexion Left (C3) 4+ Good+ Lateral Flexion Right (C3) 4+ Good+ Shoulder Strength Shoulder Manual Muscle Testing Left Flexion 5 Normal Extension 5 Normal Abduction (C5) 5 Normal Adduction 5 Normal External Rotation 4- Good- Internal Rotation 4 Good Right Flexion 5 Normal Extension 5 Normal Abduction (C5) 5 Normal Adduction 5 Normal External Rotation 4 Good Internal Rotation 4+ Good+ Hand Radiographer/Pinch Strength Hand Dominance Hand Dominance Right Hand Strength Left Comments 87, 92, 86 Right Comments 100, 92, 100 PT-OP-Q Treatments Start: 01/01/18 16:07 Freq: Status: Active Protocol: Document 02/12/18 08:21 [facility] (Rec: 02/12/18 16:46 [facility] [id number]) Cardio Equipment Upper Body Ergometer (UBE) Duration (Minutes) 6 RPM 60 Height shoulder Gym Equipment Therapeutic Ball 1 Exercise Details prone I's, T's, Y's, ER, rows Body Position Prone Reps/Duration 12 Comments verbal and manual cues Therapeutic Exercises Standing Exercises 3 Standing Exercise Name shoulder ER at 80 deg scaption Equipment Used L1 TB 2 Standing Exercise Name throw/catch rebounder Equipment Used weighted ball 2# Manual Therapy Treatment Soft Tissue Mobilization 1 Body Location c/s and upper trap left, also gentle c/s manual traction Mobilization Type Rolling Intensity/Depth Moderate Body Position Supine Joint Mobilizations 1 Joint upper thoracic spine Grade II Body Position Prone Reps/Duration 5 min PT-OP-R Modalities Start: 01/01/18 16:07 Freq: Status: Active Protocol: Document 02/12/18 08:21 [facility] (Rec: 02/12/18 16:46 [facility] [id number]) Electric Stimulation Electric Stimulation Interferential Current (IFC) Body Location left upper trap and shoulder Duration (Minutes) 15 Intensity 15 Target/Sweep Sweep Patient Position Hooklying Combined With Heat/Cold Hot Pack Ultrasound Therapy Treatment Left Shoulder Treatment Duration (minutes) 8 Patient Position Sitting Coupling Medium Ultrasound Gel Frequency Setting (mHz) 1 Mode Setting Continuous Duty Cycle 100% Intensity Setting (w/cm2) 1.3 PT-OP-T Assessment and Plan Start: 01/01/18 16:07 Freq: Status: Active Protocol: Document 02/12/18 08:21 [facility] (Rec: 02/12/18 16:46 [facility] [id number]) Physical Therapy Assessment Goals Three Impairment activity tolerance Short Term Goal (STG) Patient will resume 50% of usual activities without an increase in symptoms STG Duration 6 wks User Experience Manager Goal (LTG) Patient will resume 100% of usual activities without an increase in symptoms Two Impairment posture Short Term Goal (STG) Patient will demonstrate improved postural alignment and awareness; be able to self -correct with cues STG Duration 6 wks Shelter Goal (LTG) Patient will demonstrate improved postural habits and body mechanics for usual activities One Impairment neck disability index score Short Term Goal (STG) Decrease score from 28 to 18 STG Duration 6 wks User Experience Manager Goal (LTG) Decrease score to no greater than 5% with resumption of all usual activities LTG Duration 12 wks Progress Towards Goals Progress Towards Goals Progressing Toward Goals Assessment Summary Assessment Improved exercise tolerance, able to progress ther ex Physical Therapy Plan Frequency and Duration Frequency of Treatment 2x/Week Duration of Treatment 3 months Plan of Care Start Date 01/01/18 Plan of Care End Date 04/03/18 Therapeutic Interventions Therapeutic Interventions Home Exercise Program Manual Therapy Neuromuscular Re-education Patient/Caregiver Education Self-Care/Home Management Soft Tissue Mobilization Taping Therapeutic Activities Therapeutic Exercises Modalities Cold Pack/Ice Massage Electric Stimulation Hot Packs Infrared Therapy Iontophoresis Traction- Mechanical Ultrasound Other Therapeutic Interventions nerve gliding and flossing Next Visit Focus/Plan Next Note Type Treatment Note Next Visit Plan Progression of ther ex as tolerated.
--- NOTE | 2018-02-15 16:45 | PT.OTN ---
Current Diagnoses Impingement syndrome of left shoulder (02/15/18) Physical Therapy Treatment Note PT-OP-A Visit Information Start: 01/01/18 09:05 Freq: Status: Active Protocol: Document 02/12/18 08:21 [facility] (Rec: 02/12/18 16:46 [facility] [id number]) Out-Patient Physical Therapy Visit Information Visit Information Visit Type Treatment Note Visit Start Time 08:15 Visit Stop Time 09:15 Visit Number 6/10 Number of SPECTROGRAPH OPERATOR Visits 0 PT-OP-B Current Condition Start: 01/01/18 09:05 Freq: Status: Active Protocol: Document 01/01/18 09:06 [facility] (Rec: 01/01/18 09:14 [facility] [id number]) Current Condition History of Current Condition Onset Date 2 months History of Current Condition started with intense pain left c/s going across shoulder blade and top of shoulder, turned into a tingling a few weeks ago. Pain now less, tingling seems to be getting worse. Has been working out quite a bit in the gym, hasn't been doing neck stretches, but has been doing RC exercises. Only different thing was holding lateral raises for a few seconds because frustrated with not gaining strength. Additionally reports he has been bent over a lot doing weeding. Aggravated by any forward head and shoulder position/activities. Prior Treatments and Tests 3 x-rays [address] Dr. Sterling's office . Treatment Goals Patient/Caregiver Goals Minimize pain and tingling and return to usual activities without symptoms Prior Functional Status Baseline Function- ADL's Independent Baseline Function- Mobility Independent Baseline Function- Other chronic shoulder pain tong , s/ p bilateral surgeries. PT-OP-C Subjective Start: 01/01/18 09:05 Freq: Status: Active Protocol: Document 02/15/18 08:15 [facility] (Rec: 02/15/18 08:25 [facility] [id number]) OP-PT Subjective Patient Comments Patient Comments Exhausted and sore after installing sliding glass door with assist of son (200 lb door) PT-OP-E Functional Tests Start: 01/01/18 16:07 Freq: Status: Active Protocol: Document 01/01/18 09:06 [facility] (Rec: 01/01/18 16:49 [facility] [id number]) Functional Tests Osmel's Scratch Test Action 1: The subject is instructed to touch the opposite shoulder with his/her hand. This motion checks Glenohumeral adduction, internal rotation , horizontal adduction and scapular protraction Action 2: The subject is instructed to place his/her arm overhead and reach behind the neck to touch his/her upper back. This motion checks Glenohumeral abduction, external rotation and scapular upward rotation and elevation. Action 3: The subject puts his/her hand on the lower back and reaches upward as far as possible. This motion checks glenohumeral adduction, internal rotation and scapular retraction with downward rotation Action 1- Left top of shoulder Action 1- Right posterior shoulder Action 2- Left T10 Action 2- Right T7 Action 3- Left T10 Action 3- Right T7 PT-OP-F Manual Assessment Start: 01/01/18 16:07 Freq: Status: Active Protocol: Document 01/01/18 09:06 [facility] (Rec: 01/01/18 16:49 [facility] [id number]) Manual Assessments Soft Tissue Assessment Soft Tissue Mobility Assessment decreased mobility of upper traps tong, left greater than right Other Manual Assessments Other Manual Assessments palpable elevation of left rib PT-OP-H Neuro Start: 01/01/18 16:07 Freq: Status: Active Protocol: Document 01/01/18 09:06 [facility] (Rec: 01/01/18 16:49 [facility] [id number]) Sensation Evaluation Gross Sensation Gross Sensation WNL Sensation Description Tingling PT-OP-J Posture/Palpation/Skin Start: 01/01/18 16:07 Freq: Status: Active Protocol: Document 01/01/18 09:06 [facility] (Rec: 01/01/18 16:49 [facility] [id number]) Posture Evaluation Position Sitting Head/C-Spine Posture Forward Head T-Spine Posture Increased Kyphosis L-Spine Posture Flattened Shoulder Posture (L) Rounded (R) Rounded (L) Forward (R) Forward (L) Elevated Scapula Posture (L) Protracted (R) Protracted Arm Posture (L) Internally Rotated (R) Internally Rotated PT-OP-K Range of Motion Start: 01/01/18 16:07 Freq: Status: Active Protocol: Document 01/01/18 09:06 [facility] (Rec: 01/01/18 16:49 [facility] [id number]) Cervical Spine Range of Motion Cervical Spine Active Testing Position Sitting Flexion 48 Extension 50 Rotation Left 51 Rotation Right 62 Lateral Flexion Left 32 Lateral Flexion Right 45 ROM Limitations Soft Tissue Tightness Shoulder Goniometric Range of Motion Shoulder Measured in Degrees Active Shoulder ROM WFL Yes Testing Position Sitting PT-OP-L Special Tests Start: 01/01/18 16:07 Freq: Status: Active Protocol: Document 01/01/18 09:06 [facility] (Rec: 01/01/18 16:49 [facility] [id number]) Special Tests Cervical Spine Special Tests Traction Test Results negative for change in symptoms Passive Neck Flexion Test Results muscle tightness Foraminal Compression Test Results negative Upper Limb Tension Test Test Results positive left Shoulder Special Tests Drop Arm Rotator Cuff Test Results negative Elevation Impingement Test Results positive AC Joint Compression Test Results negative PT-OP-M Strength Start: 01/01/18 16:07 Freq: Status: Active Protocol: Document 01/01/18 09:06 [facility] (Rec: 01/01/18 16:49 [facility] [id number]) Cervical Spine Strength Cervical Spine Manual Muscle Testing Testing Position Sitting Flexion (C1-2) 4+ Good+ Extension 4+ Good+ Rotation Left 4+ Good+ Rotation Right 4+ Good+ Lateral Flexion Left (C3) 4+ Good+ Lateral Flexion Right (C3) 4+ Good+ Shoulder Strength Shoulder Manual Muscle Testing Left Flexion 5 Normal Extension 5 Normal Abduction (C5) 5 Normal Adduction 5 Normal External Rotation 4- Good- Internal Rotation 4 Good Right Flexion 5 Normal Extension 5 Normal Abduction (C5) 5 Normal Adduction 5 Normal External Rotation 4 Good Internal Rotation 4+ Good+ Hand Director Of Teaching And Learning/Pinch Strength Hand Dominance Hand Dominance Right Hand Strength Left Comments 87, 92, 86 Right Comments 100, 92, 100 PT-OP-Q Treatments Start: 01/01/18 16:07 Freq: Status: Active Protocol: Document 02/15/18 08:15 [facility] (Rec: 02/15/18 08:25 [facility] [id number]) Cardio Equipment Upper Body Ergometer (UBE) Duration (Minutes) 6 RPM 60 Height shoulder Gym Equipment Therapeutic Ball 1 Exercise Details prone I's, T's, Y's, ER, rows Body Position Prone Reps/Duration 12 Comments verbal and manual cues Therapeutic Exercises Supine Exercises 1 Supine Exercise Name pec and lat stretch supine on foam roller Comments with manual assist and incorporation of deep breathing Sidelying Exercises 2 Sidelying Exercise Name reach and roll with manual facilitation Side bilateral Reps/Minutes 5 Comments manual guidance and end-range stretch 1 Sidelying Exercise Name shoulder abd Side bilateral Reps/Minutes 10 Comments end range stretch last 2 reps Sitting Exercises 4 Sitting Exercise Name subtle posterior shoulder crease pull toward armpit Comments manual and verbal acues Manual Therapy Treatment Soft Tissue Mobilization 1 Body Location c/s and upper trap left, also gentle c/s manual traction Mobilization Type Rolling Intensity/Depth Moderate Body Position Supine Joint Mobilizations 1 Joint upper thoracic spine Grade II Body Position Prone Reps/Duration 5 min PT-OP-R Modalities Start: 01/01/18 16:07 Freq: Status: Active Protocol: Document 02/15/18 08:15 [facility] (Rec: 02/15/18 16:45 [facility] [id number]) Electric Stimulation Electric Stimulation Interferential Current (IFC) Body Location left upper trap and shoulder Duration (Minutes) 15 Intensity 15 Target/Sweep Sweep Patient Position Hooklying Combined With Heat/Cold Hot Pack Ultrasound Therapy Treatment Left Shoulder Treatment Duration (minutes) 8 Patient Position Sitting Coupling Medium Ultrasound Gel Frequency Setting (mHz) 1 Mode Setting Continuous Duty Cycle 100% Intensity Setting (w/cm2) 1.3 PT-OP-T Assessment and Plan Start: 01/01/18 16:07 Freq: Status: Active Protocol: Document 02/15/18 08:15 [facility] (Rec: 02/15/18 16:45 [facility] [id number]) Physical Therapy Assessment Impairments Impairments Activity Tolerance Functional Activities Pain Posture Progress Towards Goals Progress Towards Goals Progressing Toward Goals Assessment Summary Assessment Good tolerance for progression of ex Physical Therapy Plan Frequency and Duration Frequency of Treatment 2x/Week Duration of Treatment 3 months Plan of Care Start Date 01/01/18 Plan of Care End Date 04/03/18 Therapeutic Interventions Therapeutic Interventions Home Exercise Program Manual Therapy Neuromuscular Re-education Patient/Caregiver Education Self-Care/Home Management Soft Tissue Mobilization Taping Therapeutic Activities Therapeutic Exercises Modalities Cold Pack/Ice Massage Electric Stimulation Hot Packs Infrared Therapy Iontophoresis Traction- Mechanical Ultrasound Other Therapeutic Interventions nerve gliding and flossing Next Visit Focus/Plan Next Note Type Treatment Note Next Visit Plan continue PT per POC with emphasis on correct muscle activation and exercise form.
--- NOTE | 2018-02-19 15:51 | PT.OTN ---
Current Diagnoses Impingement syndrome of left shoulder (02/18/18) Physical Therapy Treatment Note PT-OP-A Visit Information Start: 01/01/18 09:05 Freq: Status: Active Protocol: Document 02/18/18 08:14 [facility] (Rec: 02/19/18 15:51 [facility] [id number]) Out-Patient Physical Therapy Visit Information Visit Information Visit Type Treatment Note Visit Start Time 08:14 Visit Stop Time 09:14 Total Visit Minutes 60 Visit Number 7/10 Number of AVIATION MANAGER Visits 0 PT-OP-B Current Condition Start: 01/01/18 09:05 Freq: Status: Active Protocol: Document 01/01/18 09:06 [facility] (Rec: 01/01/18 09:14 [facility] [id number]) Current Condition History of Current Condition Onset Date 2 months History of Current Condition started with intense pain left c/s going across shoulder blade and top of shoulder, turned into a tingling a few weeks ago. Pain now less, tingling seems to be getting worse. Has been working out quite a bit in the gym, hasn't been doing neck stretches, but has been doing RC exercises. Only different thing was holding lateral raises for a few seconds because frustrated with not gaining strength. Additionally reports he has been bent over a lot doing weeding. Aggravated by any forward head and shoulder position/activities. Prior Treatments and Tests 3 x-rays [address] Dr[address] Sterling's office . Treatment Goals Patient/Caregiver Goals Minimize pain and tingling and return to usual activities without symptoms Prior Functional Status Baseline Function- ADL's Independent Baseline Function- Mobility Independent Baseline Function- Other chronic shoulder pain tong , s/ p bilateral surgeries. PT-OP-C Subjective Start: 01/01/18 09:05 Freq: Status: Active Protocol: Document 02/18/18 08:14 [facility] (Rec: 02/19/18 15:51 [facility] [id number]) OP-PT Subjective Patient Comments Patient Comments Improving activity tolerance. Requires mod verbal cues/ guidance for prone lower trap strengthening Patient Reported Progress Improving PT-OP-E Functional Tests Start: 01/01/18 16:07 Freq: Status: Active Protocol: Document 01/01/18 09:06 [facility] (Rec: 01/01/18 16:49 [facility] [id number]) Functional Tests Osmel's Scratch Test Action 1: The subject is instructed to touch the opposite shoulder with his/her hand. This motion checks Glenohumeral adduction, internal rotation , horizontal adduction and scapular protraction Action 2: The subject is instructed to place his/her arm overhead and reach behind the neck to touch his/her upper back. This motion checks Glenohumeral abduction, external rotation and scapular upward rotation and elevation. Action 3: The subject puts his/her hand on the lower back and reaches upward as far as possible. This motion checks glenohumeral adduction, internal rotation and scapular retraction with downward rotation Action 1- Left top of shoulder Action 1- Right posterior shoulder Action 2- Left T10 Action 2- Right T7 Action 3- Left T10 Action 3- Right T7 PT-OP-F Manual Assessment Start: 01/01/18 16:07 Freq: Status: Active Protocol: Document 01/01/18 09:06 [facility] (Rec: 01/01/18 16:49 [facility] [id number]) Manual Assessments Soft Tissue Assessment Soft Tissue Mobility Assessment decreased mobility of upper traps tong, left greater than right Other Manual Assessments Other Manual Assessments palpable elevation of left rib PT-OP-H Neuro Start: 01/01/18 16:07 Freq: Status: Active Protocol: Document 01/01/18 09:06 [facility] (Rec: 01/01/18 16:49 [facility] [id number]) Sensation Evaluation Gross Sensation Gross Sensation WNL Sensation Description Tingling PT-OP-J Posture/Palpation/Skin Start: 01/01/18 16:07 Freq: Status: Active Protocol: Document 01/01/18 09:06 [facility] (Rec: 01/01/18 16:49 [facility] [id number]) Posture Evaluation Position Sitting Head/C-Spine Posture Forward Head T-Spine Posture Increased Kyphosis L-Spine Posture Flattened Shoulder Posture (L) Rounded (R) Rounded (L) Forward (R) Forward (L) Elevated Scapula Posture (L) Protracted (R) Protracted Arm Posture (L) Internally Rotated (R) Internally Rotated PT-OP-K Range of Motion Start: 01/01/18 16:07 Freq: Status: Active Protocol: Document 01/01/18 09:06 [facility] (Rec: 01/01/18 16:49 [facility] [id number]) Cervical Spine Range of Motion Cervical Spine Active Testing Position Sitting Flexion 48 Extension 50 Rotation Left 51 Rotation Right 62 Lateral Flexion Left 32 Lateral Flexion Right 45 ROM Limitations Soft Tissue Tightness Shoulder Goniometric Range of Motion Shoulder Measured in Degrees Active Shoulder ROM WFL Yes Testing Position Sitting PT-OP-L Special Tests Start: 01/01/18 16:07 Freq: Status: Active Protocol: Document 01/01/18 09:06 [facility] (Rec: 01/01/18 16:49 [facility] [id number]) Special Tests Cervical Spine Special Tests Traction Test Results negative for change in symptoms Passive Neck Flexion Test Results muscle tightness Foraminal Compression Test Results negative Upper Limb Tension Test Test Results positive left Shoulder Special Tests Drop Arm Rotator Cuff Test Results negative Elevation Impingement Test Results positive AC Joint Compression Test Results negative PT-OP-M Strength Start: 01/01/18 16:07 Freq: Status: Active Protocol: Document 01/01/18 09:06 [facility] (Rec: 01/01/18 16:49 [facility] [id number]) Cervical Spine Strength Cervical Spine Manual Muscle Testing Testing Position Sitting Flexion (C1-2) 4+ Good+ Extension 4+ Good+ Rotation Left 4+ Good+ Rotation Right 4+ Good+ Lateral Flexion Left (C3) 4+ Good+ Lateral Flexion Right (C3) 4+ Good+ Shoulder Strength Shoulder Manual Muscle Testing Left Flexion 5 Normal Extension 5 Normal Abduction (C5) 5 Normal Adduction 5 Normal External Rotation 4- Good- Internal Rotation 4 Good Right Flexion 5 Normal Extension 5 Normal Abduction (C5) 5 Normal Adduction 5 Normal External Rotation 4 Good Internal Rotation 4+ Good+ Hand Bank Examiner/Pinch Strength Hand Dominance Hand Dominance Right Hand Strength Left Comments 87, 92, 86 Right Comments 100, 92, 100 PT-OP-Q Treatments Start: 01/01/18 16:07 Freq: Status: Active Protocol: Document 02/18/18 08:14 [facility] (Rec: 02/18/18 08:58 [facility] [id number]) Cardio Equipment Upper Body Ergometer (UBE) Duration (Minutes) 6 RPM 60 Height shoulder Gym Equipment Therapeutic Ball 1 Exercise Details prone I's, T's, Y's, ER, rows Body Position Prone Reps/Duration 12 Comments verbal and manual cues Therapeutic Exercises Supine Exercises 1 Supine Exercise Name pec and lat stretch supine on foam roller Comments with manual assist and incorporation of deep breathing Sidelying Exercises 2 Sidelying Exercise Name reach and roll with manual facilitation Side bilateral Reps/Minutes 5 Comments manual guidance and end-range stretch Standing Exercises 3 Standing Exercise Name shoulder ER at 80 deg scaption Equipment Used L2 TB PT-OP-R Modalities Start: 01/01/18 16:07 Freq: Status: Active Protocol: Document 02/18/18 08:14 [facility] (Rec: 02/18/18 08:58 [facility] [id number]) Electric Stimulation Electric Stimulation Interferential Current (IFC) Body Location left upper trap and shoulder Duration (Minutes) 15 Intensity 15 Target/Sweep Sweep Patient Position Hooklying Combined With Heat/Cold Hot Pack Ultrasound Therapy Treatment Left Shoulder Treatment Duration (minutes) 8 Patient Position Sitting Coupling Medium Ultrasound Gel Frequency Setting (mHz) 1 Mode Setting Continuous Duty Cycle 100% Intensity Setting (w/cm2) 1.3 PT-OP-T Assessment and Plan Start: 01/01/18 16:07 Freq: Status: Active Protocol: Document 02/18/18 08:14 [facility] (Rec: 02/18/18 08:58 [facility] [id number]) Physical Therapy Assessment Goals Three Impairment activity tolerance Short Term Goal (STG) Patient will resume 50% of usual activities without an increase in symptoms STG Duration 6 wks [facility] Goal (LTG) Patient will resume 100% of usual activities without an increase in symptoms Two Impairment posture Short Term Goal (STG) Patient will demonstrate improved postural alignment and awareness; be able to self -correct with cues STG Duration 6 wks [place] Goal (LTG) Patient will demonstrate improved postural habits and body mechanics for usual activities One Impairment neck disability index score Short Term Goal (STG) Decrease score from 28 to 18 STG Duration 6 wks [facility] Goal (LTG) Decrease score to no greater than 5% with resumption of all usual activities LTG Duration 12 wks Progress Towards Goals Progress Towards Goals Progressing Toward Goals Assessment Summary Assessment Continues to improve, no pain with paddle boarding last night Physical Therapy Plan Frequency and Duration Frequency of Treatment 2x/Week Duration of Treatment 3 months Plan of Care Start Date 01/01/18 Plan of Care End Date 04/03/18 Therapeutic Interventions Therapeutic Interventions Home Exercise Program Manual Therapy Neuromuscular Re-education Patient/Caregiver Education Self-Care/Home Management Soft Tissue Mobilization Taping Therapeutic Activities Therapeutic Exercises Modalities Cold Pack/Ice Massage Electric Stimulation Hot Packs Infrared Therapy Iontophoresis Traction- Mechanical Ultrasound Other Therapeutic Interventions nerve gliding and flossing Next Visit Focus/Plan Next Note Type Treatment Note Next Visit Plan continue PT per POC with emphasis on correct muscle activation and exercise form.
--- NOTE | 2018-02-22 17:04 | PT.OTN ---
Current Diagnoses Impingement syndrome of left shoulder (02/22/18) Physical Therapy Treatment Note PT-OP-A Visit Information Start: 01/01/18 09:05 Freq: Status: Active Protocol: Document 02/22/18 08:18 [facility] (Rec: 02/22/18 08:44 [facility] [id number]) Out-Patient Physical Therapy Visit Information Visit Information Visit Type Treatment Note Visit Start Time 08:14 Visit Stop Time 09:14 Total Visit Minutes 61 Visit Number 8/10 Number of EQUIPMENT INSTALLATION PROFESSIONAL Visits 0 PT-OP-B Current Condition Start: 01/01/18 09:05 Freq: Status: Active Protocol: Document 01/01/18 09:06 [facility] (Rec: 01/01/18 09:14 [facility] [id number]) Current Condition History of Current Condition Onset Date 2 months History of Current Condition started with intense pain left c/s going across shoulder blade and top of shoulder, turned into a tingling a few weeks ago. Pain now less, tingling seems to be getting worse. Has been working out quite a bit in the gym, hasn't been doing neck stretches, but has been doing RC exercises. Only different thing was holding lateral raises for a few seconds because frustrated with not gaining strength. Additionally reports he has been bent over a lot doing weeding. Aggravated by any forward head and shoulder position/activities. Prior Treatments and Tests 3 x-rays [address] Dr. Sterling's office . Treatment Goals Patient/Caregiver Goals Minimize pain and tingling and return to usual activities without symptoms Prior Functional Status Baseline Function- ADL's Independent Baseline Function- Mobility Independent Baseline Function- Other chronic shoulder pain tong , s/ p bilateral surgeries. PT-OP-C Subjective Start: 01/01/18 09:05 Freq: Status: Active Protocol: Document 02/22/18 08:18 [facility] (Rec: 02/22/18 08:44 [facility] [id number]) OP-PT Subjective Patient Comments Patient Comments No new c/o. Compliant to HEP PT-OP-E Functional Tests Start: 01/01/18 16:07 Freq: Status: Active Protocol: Document 01/01/18 09:06 [facility] (Rec: 01/01/18 16:49 [facility] [id number]) Functional Tests Rose Maryey's Scratch Test Action 1: The subject is instructed to touch the opposite shoulder with his/her hand. This motion checks Glenohumeral adduction, internal rotation , horizontal adduction and scapular protraction Action 2: The subject is instructed to place his/her arm overhead and reach behind the neck to touch his/her upper back. This motion checks Glenohumeral abduction, external rotation and scapular upward rotation and elevation. Action 3: The subject puts his/her hand on the lower back and reaches upward as far as possible. This motion checks glenohumeral adduction, internal rotation and scapular retraction with downward rotation Action 1- Left top of shoulder Action 1- Right posterior shoulder Action 2- Left T10 Action 2- Right T7 Action 3- Left T10 Action 3- Right T7 PT-OP-F Manual Assessment Start: 01/01/18 16:07 Freq: Status: Active Protocol: Document 01/01/18 09:06 [facility] (Rec: 01/01/18 16:49 [facility] [id number]) Manual Assessments Soft Tissue Assessment Soft Tissue Mobility Assessment decreased mobility of upper traps tong, left greater than right Other Manual Assessments Other Manual Assessments palpable elevation of left rib PT-OP-H Neuro Start: 01/01/18 16:07 Freq: Status: Active Protocol: Document 01/01/18 09:06 [facility] (Rec: 01/01/18 16:49 [facility] [id number]) Sensation Evaluation Gross Sensation Gross Sensation WNL Sensation Description Tingling PT-OP-J Posture/Palpation/Skin Start: 01/01/18 16:07 Freq: Status: Active Protocol: Document 01/01/18 09:06 [facility] (Rec: 01/01/18 16:49 [facility] [id number]) Posture Evaluation Position Sitting Head/C-Spine Posture Forward Head T-Spine Posture Increased Kyphosis L-Spine Posture Flattened Shoulder Posture (L) Rounded (R) Rounded (L) Forward (R) Forward (L) Elevated Scapula Posture (L) Protracted (R) Protracted Arm Posture (L) Internally Rotated (R) Internally Rotated PT-OP-K Range of Motion Start: 01/01/18 16:07 Freq: Status: Active Protocol: Document 01/01/18 09:06 [facility] (Rec: 01/01/18 16:49 [facility] [id number]) Cervical Spine Range of Motion Cervical Spine Active Testing Position Sitting Flexion 48 Extension 50 Rotation Left 51 Rotation Right 62 Lateral Flexion Left 32 Lateral Flexion Right 45 ROM Limitations Soft Tissue Tightness Shoulder Goniometric Range of Motion Shoulder Measured in Degrees Active Shoulder ROM WFL Yes Testing Position Sitting PT-OP-L Special Tests Start: 01/01/18 16:07 Freq: Status: Active Protocol: Document 01/01/18 09:06 [facility] (Rec: 01/01/18 16:49 [facility] [id number]) Special Tests Cervical Spine Special Tests Traction Test Results negative for change in symptoms Passive Neck Flexion Test Results muscle tightness Foraminal Compression Test Results negative Upper Limb Tension Test Test Results positive left Shoulder Special Tests Drop Arm Rotator Cuff Test Results negative Elevation Impingement Test Results positive AC Joint Compression Test Results negative PT-OP-M Strength Start: 01/01/18 16:07 Freq: Status: Active Protocol: Document 01/01/18 09:06 [facility] (Rec: 01/01/18 16:49 [facility] [id number]) Cervical Spine Strength Cervical Spine Manual Muscle Testing Testing Position Sitting Flexion (C1-2) 4+ Good+ Extension 4+ Good+ Rotation Left 4+ Good+ Rotation Right 4+ Good+ Lateral Flexion Left (C3) 4+ Good+ Lateral Flexion Right (C3) 4+ Good+ Shoulder Strength Shoulder Manual Muscle Testing Left Flexion 5 Normal Extension 5 Normal Abduction (C5) 5 Normal Adduction 5 Normal External Rotation 4- Good- Internal Rotation 4 Good Right Flexion 5 Normal Extension 5 Normal Abduction (C5) 5 Normal Adduction 5 Normal External Rotation 4 Good Internal Rotation 4+ Good+ Hand Home Health Scheduler/Pinch Strength Hand Dominance Hand Dominance Right Hand Strength Left Comments 87, 92, 86 Right Comments 100, 92, 100 PT-OP-Q Treatments Start: 01/01/18 16:07 Freq: Status: Active Protocol: Document 02/22/18 08:18 [facility] (Rec: 02/22/18 08:44 [facility] [id number]) Cardio Equipment Elliptical Duration (Minutes) 5 Resistance 1 Gym Equipment Therapeutic Ball 1 Exercise Details prone I's, T's, Y's, ER, rows Body Position Prone Reps/Duration 12 Comments verbal and manual cues, 2# for T's Therapeutic Exercises Standing Exercises 3 Standing Exercise Name shoulder ER at 80 deg scaption Equipment Used L2 TB 1 Standing Exercise Name lower trap ex (UE's in full flex) Side bilateral Equipment Used L1 TB PT-OP-R Modalities Start: 01/01/18 16:07 Freq: Status: Active Protocol: Document 02/22/18 08:18 [facility] (Rec: 02/22/18 17:04 [facility] [id number]) Electric Stimulation Electric Stimulation Interferential Current (IFC) Body Location left upper trap and shoulder Duration (Minutes) 15 Intensity 15 Target/Sweep Sweep Patient Position Hooklying Combined With Heat/Cold Hot Pack Ultrasound Therapy Treatment Left Shoulder Treatment Duration (minutes) 8 Patient Position Sitting Coupling Medium Ultrasound Gel Frequency Setting (mHz) 1 Mode Setting Continuous Duty Cycle 100% Intensity Setting (w/cm2) 1.3 PT-OP-T Assessment and Plan Start: 01/01/18 16:07 Freq: Status: Active Protocol: Document 02/22/18 08:18 [facility] (Rec: 02/22/18 17:04 [facility] [id number]) Physical Therapy Assessment Impairments Impairments Activity Tolerance Functional Activities Pain Posture Goals Three Impairment activity tolerance Short Term Goal (STG) Patient will resume 50% of usual activities without an increase in symptoms STG Duration 6 wks [facility] Goal (LTG) Patient will resume 100% of usual activities without an increase in symptoms Two Impairment posture Short Term Goal (STG) Patient will demonstrate improved postural alignment and awareness; be able to self -correct with cues STG Duration 6 wks [facility] Goal (LTG) Patient will demonstrate improved postural habits and body mechanics for usual activities One Impairment neck disability index score Short Term Goal (STG) Decrease score from 28 to 18 STG Duration 6 wks [facility] Goal (LTG) Decrease score to no greater than 5% with resumption of all usual activities LTG Duration 12 wks Progress Towards Goals Progress Towards Goals Progressing Toward Goals Progress Comments Reports still having occasional tingling daily Assessment Summary Assessment Good progress with ther ex, may need further nerve gliding and manual intervention due to at end of today's session admitting he was still having some neurological symptoms. Physical Therapy Plan Frequency and Duration Frequency of Treatment 2x/Week Duration of Treatment 3 months Plan of Care Start Date 01/01/18 Plan of Care End Date 04/03/18 Therapeutic Interventions Therapeutic Interventions Home Exercise Program Manual Therapy Neuromuscular Re-education Patient/Caregiver Education Self-Care/Home Management Soft Tissue Mobilization Taping Therapeutic Activities Therapeutic Exercises Modalities Cold Pack/Ice Massage Electric Stimulation Hot Packs Infrared Therapy Iontophoresis Traction- Mechanical Ultrasound Other Therapeutic Interventions nerve gliding and flossing Next Visit Focus/Plan Next Note Type Treatment Note Next Visit Plan nerve gliding and manual intervention, progress ther ex as tolerated.
--- NOTE | 2018-03-08 16:23 | PT.OTN ---
Current Diagnoses Impingement syndrome of left shoulder (03/08/18) Physical Therapy Treatment Note PT-OP-A Visit Information Start: 01/01/18 09:05 Freq: Status: Active Protocol: Document 02/22/18 08:18 [facility] (Rec: 02/22/18 08:44 [facility] [id number]) Out-Patient Physical Therapy Visit Information Visit Information Visit Type Treatment Note Visit Start Time 08:14 Visit Stop Time 09:14 Total Visit Minutes 61 Visit Number 8/10 Number of PERIOPERATIVE NURSE Visits 0 PT-OP-B Current Condition Start: 01/01/18 09:05 Freq: Status: Active Protocol: Document 01/01/18 09:06 [facility] (Rec: 01/01/18 09:14 [facility] [id number]) Current Condition History of Current Condition Onset Date 2 months History of Current Condition started with intense pain left c/s going across shoulder blade and top of shoulder, turned into a tingling a few weeks ago. Pain now less, tingling seems to be getting worse. Has been working out quite a bit in the gym, hasn't been doing neck stretches, but has been doing RC exercises. Only different thing was holding lateral raises for a few seconds because frustrated with not gaining strength. Additionally reports he has been bent over a lot doing weeding. Aggravated by any forward head and shoulder position/activities. Prior Treatments and Tests [address] x-[address] Dr[address] Sterling's office . Treatment Goals Patient/Caregiver Goals Minimize pain and tingling and return to usual activities without symptoms Prior Functional Status Baseline Function- ADL's Independent Baseline Function- Mobility Independent Baseline Function- Other chronic shoulder pain tong , s/ p bilateral surgeries. PT-OP-C Subjective Start: 01/01/18 09:05 Freq: Status: Active Protocol: Document 03/08/18 08:15 [facility] (Rec: 03/08/18 09:03 [facility] [id number]) OP-PT Subjective Patient Comments Patient Comments It's better but still there, feel it especially at the gym, when bending forward feel the tingling. PT-OP-E Functional Tests Start: 01/01/18 16:07 Freq: Status: Active Protocol: Document 01/01/18 09:06 [facility] (Rec: 01/01/18 16:49 [facility] [id number]) Functional Tests Osmel's Scratch Test Action 1: The subject is instructed to touch the opposite shoulder with his/her hand. This motion checks Glenohumeral adduction, internal rotation , horizontal adduction and scapular protraction Action 2: The subject is instructed to place his/her arm overhead and reach behind the neck to touch his/her upper back. This motion checks Glenohumeral abduction, external rotation and scapular upward rotation and elevation. Action 3: The subject puts his/her hand on the lower back and reaches upward as far as possible. This motion checks glenohumeral adduction, internal rotation and scapular retraction with downward rotation Action 1- Left top of shoulder Action 1- Right posterior shoulder Action 2- Left T10 Action 2- Right T7 Action 3- Left T10 Action 3- Right T7 PT-OP-F Manual Assessment Start: 01/01/18 16:07 Freq: Status: Active Protocol: Document 01/01/18 09:06 [facility] (Rec: 01/01/18 16:49 [facility] [id number]) Manual Assessments Soft Tissue Assessment Soft Tissue Mobility Assessment decreased mobility of upper traps tong, left greater than right Other Manual Assessments Other Manual Assessments palpable elevation of left rib PT-OP-H Neuro Start: 01/01/18 16:07 Freq: Status: Active Protocol: Document 01/01/18 09:06 [facility] (Rec: 01/01/18 16:49 [facility] [id number]) Sensation Evaluation Gross Sensation Gross Sensation WNL Sensation Description Tingling PT-OP-J Posture/Palpation/Skin Start: 01/01/18 16:07 Freq: Status: Active Protocol: Document 01/01/18 09:06 [facility] (Rec: 01/01/18 16:49 [facility] [id number]) Posture Evaluation Position Sitting Head/C-Spine Posture Forward Head T-Spine Posture Increased Kyphosis L-Spine Posture Flattened Shoulder Posture (L) Rounded (R) Rounded (L) Forward (R) Forward (L) Elevated Scapula Posture (L) Protracted (R) Protracted Arm Posture (L) Internally Rotated (R) Internally Rotated PT-OP-K Range of Motion Start: 01/01/18 16:07 Freq: Status: Active Protocol: Document 01/01/18 09:06 [facility] (Rec: 01/01/18 16:49 [facility] [id number]) Cervical Spine Range of Motion Cervical Spine Active Testing Position Sitting Flexion 48 Extension 50 Rotation Left 51 Rotation Right 62 Lateral Flexion Left 32 Lateral Flexion Right 45 ROM Limitations Soft Tissue Tightness Shoulder Goniometric Range of Motion Shoulder Measured in Degrees Active Shoulder ROM WFL Yes Testing Position Sitting PT-OP-L Special Tests Start: 01/01/18 16:07 Freq: Status: Active Protocol: Document 01/01/18 09:06 [facility] (Rec: 01/01/18 16:49 [facility] [id number]) Special Tests Cervical Spine Special Tests Traction Test Results negative for change in symptoms Passive Neck Flexion Test Results muscle tightness Foraminal Compression Test Results negative Upper Limb Tension Test Test Results positive left Shoulder Special Tests Drop Arm Rotator Cuff Test Results negative Elevation Impingement Test Results positive AC Joint Compression Test Results negative PT-OP-M Strength Start: 01/01/18 16:07 Freq: Status: Active Protocol: Document 01/01/18 09:06 [facility] (Rec: 01/01/18 16:49 [facility] [id number]) Cervical Spine Strength Cervical Spine Manual Muscle Testing Testing Position Sitting Flexion (C1-2) 4+ Good+ Extension 4+ Good+ Rotation Left 4+ Good+ Rotation Right 4+ Good+ Lateral Flexion Left (C3) 4+ Good+ Lateral Flexion Right (C3) 4+ Good+ Shoulder Strength Shoulder Manual Muscle Testing Left Flexion 5 Normal Extension 5 Normal Abduction (C5) 5 Normal Adduction 5 Normal External Rotation 4- Good- Internal Rotation 4 Good Right Flexion 5 Normal Extension 5 Normal Abduction (C5) 5 Normal Adduction 5 Normal External Rotation 4 Good Internal Rotation 4+ Good+ Hand Grain Elevator Superintendent/Pinch Strength Hand Dominance Hand Dominance Right Hand Strength Left Comments 87, 92, 86 Right Comments 100, 92, 100 PT-OP-Q Treatments Start: 01/01/18 16:07 Freq: Status: Active Protocol: Document 03/08/18 08:15 [facility] (Rec: 03/08/18 09:03 [facility] [id number]) Cardio Equipment Upper Body Ergometer (UBE) Duration (Minutes) 6 RPM 60 Height shoulder Gym Equipment Therapeutic Ball 1 Exercise Details prone I's, T's, Y's, ER, rows Body Position Prone Reps/Duration 15x Comments verbal and manual cues, 2# for T's. Reviewed standing Y's due to pt. c/o some tingling with prone Therapeutic Exercises Supine Exercises 2 Supine Exercise Name segmental thoracic extension over foam roller Reps/Minutes 4 min Therapeutic Activity Therapeutic Activity 1 Name functional squat with emphasis on neutral postural alignment Reps/Minutes 5 min Comments using yardstick Manual Therapy Treatment Soft Tissue Mobilization 1 Body Location c/s and upper trap left, also gentle c/s manual traction Mobilization Type Rolling Intensity/Depth Moderate Body Position Supine Self-Care/Home Management Treatment Education Other Education discontinue any activity if causing tingling. Re-set postural alignment and try again. PT-OP-R Modalities Start: 01/01/18 16:07 Freq: Status: Active Protocol: Document 03/08/18 08:15 [facility] (Rec: 03/08/18 16:23 [facility] [id number]) Electric Stimulation Electric Stimulation Interferential Current (IFC) Body Location left upper trap and shoulder Duration (Minutes) 15 Intensity 15 Target/Sweep Sweep Patient Position Hooklying Combined With Heat/Cold Hot Pack Ultrasound Therapy Treatment Left Shoulder Treatment Duration (minutes) 8 Patient Position Sitting Coupling Medium Ultrasound Gel Frequency Setting (mHz) 1 Mode Setting Continuous Duty Cycle 100% Intensity Setting (w/cm2) 1.3 PT-OP-T Assessment and Plan Start: 01/01/18 16:07 Freq: Status: Active Protocol: Document 03/08/18 08:15 [facility] (Rec: 03/08/18 16:23 [facility] [id number]) Physical Therapy Assessment Impairments Impairments Activity Tolerance Functional Activities Pain Posture Progress Towards Goals Progress Towards Goals Progressing Toward Goals Progress Comments Patient demonstrated improved understanding of need for neutral alignment and stabilization with functional squats and weight-lifting activities at gym. When corrected by PT patient able to do squat motion without tingling. Assessment Summary Assessment At this time patient is scheduled for 1 further PT visit. Will assess need for further PT at next visit. Physical Therapy Plan Frequency and Duration Frequency of Treatment 2x/Week Duration of Treatment 3 months Plan of Care Start Date 01/01/18 Plan of Care End Date 04/03/18 Therapeutic Interventions Therapeutic Interventions Home Exercise Program Manual Therapy Neuromuscular Re-education Patient/Caregiver Education Self-Care/Home Management Soft Tissue Mobilization Taping Therapeutic Activities Therapeutic Exercises Modalities Cold Pack/Ice Massage Electric Stimulation Hot Packs Infrared Therapy Iontophoresis Traction- Mechanical Ultrasound Other Therapeutic Interventions nerve gliding and flossing Next Visit Focus/Plan Next Note Type Treatment Note Next Visit Plan Review neutral alignment with functional squat, other activities that may be causing increase in symptoms. Assess need for further PT.
--- NOTE | 2018-03-15 11:03 | PT.OTN ---
Current Diagnoses Impingement syndrome of left shoulder (03/11/18) Physical Therapy Treatment Note PT-OP-A Visit Information Start: 01/01/18 09:05 Freq: Status: Active Protocol: Document 03/11/18 08:14 [facility] (Rec: 03/15/18 11:03 [facility] [id number]) Out-Patient Physical Therapy Visit Information Visit Information Visit Type Treatment Note Visit Start Time 08:14 Visit Stop Time 09:14 Total Visit Minutes 61 Visit Number 8/10 Number of COLOR EXPERT Visits 0 PT-OP-B Current Condition Start: 01/01/18 09:05 Freq: Status: Active Protocol: Document 01/01/18 09:06 [facility] (Rec: 01/01/18 09:14 [facility] [id number]) Current Condition History of Current Condition Onset Date 2 months History of Current Condition started with intense pain left c/s going across shoulder blade and top of shoulder, turned into a tingling a few weeks ago. Pain now less, tingling seems to be getting worse. Has been working out quite a bit in the gym, hasn't been doing neck stretches, but has been doing RC exercises. Only different thing was holding lateral raises for a few seconds because frustrated with not gaining strength. Additionally reports he has been bent over a lot doing weeding. Aggravated by any forward head and shoulder position/activities. Prior Treatments and Tests 3 x-rays [address] Dr. Sterling's office . Treatment Goals Patient/Caregiver Goals Minimize pain and tingling and return to usual activities without symptoms Prior Functional Status Baseline Function- ADL's Independent Baseline Function- Mobility Independent Baseline Function- Other chronic shoulder pain tong , s/ p bilateral surgeries. PT-OP-C Subjective Start: 01/01/18 09:05 Freq: Status: Active Protocol: Document 03/11/18 08:19 [facility] (Rec: 03/15/18 11:00 [facility] [id number]) OP-PT Subjective Patient Comments Patient Comments Better when I do what I'm supposed to PT-OP-E Functional Tests Start: 01/01/18 16:07 Freq: Status: Active Protocol: Document 01/01/18 09:06 [facility] (Rec: 01/01/18 16:49 [facility] [id number]) Functional Tests Osmel's Scratch Test Action 1: The subject is instructed to touch the opposite shoulder with his/her hand. This motion checks Glenohumeral adduction, internal rotation , horizontal adduction and scapular protraction Action 2: The subject is instructed to place his/her arm overhead and reach behind the neck to touch his/her upper back. This motion checks Glenohumeral abduction, external rotation and scapular upward rotation and elevation. Action 3: The subject puts his/her hand on the lower back and reaches upward as far as possible. This motion checks glenohumeral adduction, internal rotation and scapular retraction with downward rotation Action 1- Left top of shoulder Action 1- Right posterior shoulder Action 2- Left T10 Action 2- Right T7 Action 3- Left T10 Action 3- Right T7 PT-OP-F Manual Assessment Start: 01/01/18 16:07 Freq: Status: Active Protocol: Document 01/01/18 09:06 [facility] (Rec: 01/01/18 16:49 [facility] [id number]) Manual Assessments Soft Tissue Assessment Soft Tissue Mobility Assessment decreased mobility of upper traps tong, left greater than right Other Manual Assessments Other Manual Assessments palpable elevation of left rib PT-OP-H Neuro Start: 01/01/18 16:07 Freq: Status: Active Protocol: Document 01/01/18 09:06 [facility] (Rec: 01/01/18 16:49 [facility] [id number]) Sensation Evaluation Gross Sensation Gross Sensation WNL Sensation Description Tingling PT-OP-J Posture/Palpation/Skin Start: 01/01/18 16:07 Freq: Status: Active Protocol: Document 01/01/18 09:06 [facility] (Rec: 01/01/18 16:49 [facility] [id number]) Posture Evaluation Position Sitting Head/C-Spine Posture Forward Head T-Spine Posture Increased Kyphosis L-Spine Posture Flattened Shoulder Posture (L) Rounded (R) Rounded (L) Forward (R) Forward (L) Elevated Scapula Posture (L) Protracted (R) Protracted Arm Posture (L) Internally Rotated (R) Internally Rotated PT-OP-K Range of Motion Start: 01/01/18 16:07 Freq: Status: Active Protocol: Document 01/01/18 09:06 [facility] (Rec: 01/01/18 16:49 [facility] [id number]) Cervical Spine Range of Motion Cervical Spine Active Testing Position Sitting Flexion 48 Extension 50 Rotation Left 51 Rotation Right 62 Lateral Flexion Left 32 Lateral Flexion Right 45 ROM Limitations Soft Tissue Tightness Shoulder Goniometric Range of Motion Shoulder Measured in Degrees Active Shoulder ROM WFL Yes Testing Position Sitting PT-OP-L Special Tests Start: 01/01/18 16:07 Freq: Status: Active Protocol: Document 01/01/18 09:06 [facility] (Rec: 01/01/18 16:49 [facility] [id number]) Special Tests Cervical Spine Special Tests Traction Test Results negative for change in symptoms Passive Neck Flexion Test Results muscle tightness Foraminal Compression Test Results negative Upper Limb Tension Test Test Results positive left Shoulder Special Tests Drop Arm Rotator Cuff Test Results negative Elevation Impingement Test Results positive AC Joint Compression Test Results negative PT-OP-M Strength Start: 01/01/18 16:07 Freq: Status: Active Protocol: Document 01/01/18 09:06 [facility] (Rec: 01/01/18 16:49 [facility] [id number]) Cervical Spine Strength Cervical Spine Manual Muscle Testing Testing Position Sitting Flexion (C1-2) 4+ Good+ Extension 4+ Good+ Rotation Left 4+ Good+ Rotation Right 4+ Good+ Lateral Flexion Left (C3) 4+ Good+ Lateral Flexion Right (C3) 4+ Good+ Shoulder Strength Shoulder Manual Muscle Testing Left Flexion 5 Normal Extension 5 Normal Abduction (C5) 5 Normal Adduction 5 Normal External Rotation 4- Good- Internal Rotation 4 Good Right Flexion 5 Normal Extension 5 Normal Abduction (C5) 5 Normal Adduction 5 Normal External Rotation 4 Good Internal Rotation 4+ Good+ Hand Home Theater Expert/Pinch Strength Hand Dominance Hand Dominance Right Hand Strength Left Comments 87, 92, 86 Right Comments 100, 92, 100 PT-OP-Q Treatments Start: 01/01/18 16:07 Freq: Status: Active Protocol: Document 03/11/18 08:19 [facility] (Rec: 03/15/18 11:00 [facility] [id number]) Gym Equipment Therapeutic Ball 1 Exercise Details prone I's, T's, Y's, ER, rows Body Position Prone Reps/Duration 15x Comments verbal and manual cues, 2# for T's. Reviewed standing Y's due to pt. c/o some tingling with prone Therapeutic Exercises Sidelying Exercises 2 Sidelying Exercise Name reach and roll with manual facilitation Side bilateral Reps/Minutes 5 Comments manual guidance and end-range stretch Manual Therapy Treatment Soft Tissue Mobilization 1 Body Location c/s and upper trap left, also gentle c/s manual traction Mobilization Type Rolling Intensity/Depth Moderate Body Position Supine Self-Care/Home Management Treatment Education Other Education Review of HEP, answering questions. PT-OP-R Modalities Start: 01/01/18 16:07 Freq: Status: Active Protocol: Document 03/11/18 08:19 [facility] (Rec: 03/15/18 11:00 [facility] [id number]) Electric Stimulation Electric Stimulation Interferential Current (IFC) Body Location left upper trap and shoulder Duration (Minutes) 15 Intensity 15 Target/Sweep Sweep Patient Position Hooklying Combined With Heat/Cold Hot Pack Ultrasound Therapy Treatment Left Shoulder Treatment Duration (minutes) 8 Patient Position Sitting Coupling Medium Ultrasound Gel Frequency Setting (mHz) 1 Mode Setting Continuous Duty Cycle 100% Intensity Setting (w/cm2) 1.3 PT-OP-T Assessment and Plan Start: 01/01/18 16:07 Freq: Status: Active Protocol: Document 03/11/18 08:19 [facility] (Rec: 03/15/18 11:00 [facility] [id number]) Physical Therapy Assessment Progress Towards Goals Progress Comments Goals mostly met, patient independent with HEP and demonstrates good understanding of body mechanics and postural principles. should continue to improve if doesn't over do as has tendencyto do. Assessment Summary Assessment No further need for PT at this time. Physical Therapy Plan Discharge Physical Therapy Discharge Comments Goals mostly met. Patient independent in HEP.
== END 2018-03-12 11:07 ==
LOC: PHYS 08:15
PROVIDERS: Family Provider Family Medicine; PCP Family Medicine; Visit Provider Orthopaedic Surgery
DX: M75.42 Impingement syndrome of left shoulder (principal)
CPT/HCPCS: 97010; 97014; 97035; 97110; 97140; 97162; 97535; G0283

== ENCOUNTER → 2018-09-05 10:17 | Outpatient (CLI) | payer MEDICARE, SELFPAY | PROVIDERS: Family Provider Family Medicine; PCP Family Medicine; Visit Provider Physician Assistant | DX: L02.415 Cutaneous abscess of right lower limb (principal) | CPT/HCPCS: 87070; 87077; 87147; 87186; 87205 ==

== ENCOUNTER → 2020-10-19 08:56 | Outpatient (CLI) | payer MEDICARE, SELFPAY ==
--- NOTE | 2020-10-19 | DI.US.S_ITS ---
PROCEDURE: US ABD AORTA ANEURYSM SCREEN INDICATIONS: ABDOMINAL AORTIC ANEURYSM SCREENING TECHNIQUE: Real time scanning was performed of the aorta and iliac arteries, with image documentation. COMPARISON: None. FINDINGS: Aorta: Proximal aortic diameter measures 1.6 cm. Mid-aorta measures will 2.1 cm. Distal aortic diameter is 2.1 cm. Iliac arteries: Right common iliac artery measures 1.2 cm. Left common iliac artery measures 1.3 cm. IMPRESSION: No aneurysm seen, no dissection suspected. Dictated by: Denzel Joaquin M.D. on 10/19/2020 at 9:36 Approved by: Denzel Joaquin M.D. on 10/19/2020 at 9:46
--- NOTE | 2020-10-19 | DI.US.S_ITS ---
PROCEDURE: US ABDOMEN LIMITED INDICATIONS: EVALUATE FOR HERNIA TECHNIQUE: Real-time focused scanning was performed of the abdomen, with image documentation. COMPARISON: None. FINDINGS: Reducible fat containing left inguinal hernia. IMPRESSION: Fat containing left inguinal hernia. Dictated by: Peter MURRELL Interpreted: Ava Lema MD on 10/19/2020 at 14:18 Approved by: Ava eLma M.D. on 10/19/2020 at 16:50
== END ==
PROVIDERS: PCP Family Medicine; Referring Provider Family Medicine; Visit Provider Family Medicine
DX: Z13.6 Encounter for screening for cardiovascular disorders (principal); K40.90 Unilateral inguinal hernia, without obstruction or gangrene, not specified as recurrent
CPT/HCPCS: 76705; 76706

== ENCOUNTER 2023-10-25 18:08 | Emergency (ER) | payer MEDICARE, SELFPAY ==
[2023-10-25 18:10] VITALS: BP 143/69; PULSE 79; RESP 18; TEMP 37.4; O2SAT 98; BMI 23.7
--- NOTE | 2023-10-25 18:39 | ED.GENADULT ---
HPI - General Adult General Chief complaint: Urogenital-Male Stated complaint: cant urinate/ T-2/ chills/ feels ill Time Seen by Provider: 10/25/23 18:16 Source: patient Mode of arrival: Ambulatory History of Present Illness HPI narrative: Patient is a 73-year-old male. Does have history of an enlarged prostate. No history of urinary tract infections. The end of last week had a change to some of his blood pressure medications when he was taken off of hydrochlorothiazide. He states that since that time he has been able to urinate but feels like he has not completely emptying his bladder. He is having some lower abdominal tenderness. He also states he feels like he is having chills and fever and generally feels ill. No chest pain or shortness of breath. No sore throat. No issues with constipation. Related Data Home Medications Medication Instructions Recorded Confirmed ACETAMINOPHEN (#TYLENOL) 1,000 mg PO BID ##0 05/30/11 04/16/22 CA PANTOTHENATE/FOLIC ACID/VIT 1 tab PO QDAY ##0 05/30/11 04/16/22 (MULTIVITAMIN) DICLOFENAC SODIUM (VOLTAREN) 75 mg PO BID ##0 05/30/11 04/16/22 Fish Oil (#OMEGA-3 FISH OIL) 1,200 mg PO ##0 05/30/11 04/16/22 amlodipine 5 mg tablet (Norvasc) 10 mg PO QDAY ##0 05/30/11 04/16/22 cholecalciferol (vitamin D3) 50 1,000 mg QDAY ##0 05/30/11 04/16/22 mcg (2,000 unit) capsule (Vitamin D3) hydrochlorothiazide 25 mg tablet 25 mg PO BID ##0 05/30/11 04/16/22 bupropion HCl 150 mg 24 hr tablet, 150 mg PO QAM 02/18/22 04/16/22 extended release bupropion HCl 300 mg 24 hr tablet, 300 mg PO QAM 02/18/22 04/16/22 extended release hydrocodone 5 mg-acetaminophen 325 1 tab PO Q8H PRN 02/18/22 04/16/22 mg tablet metoprolol tartrate 25 mg tablet 12.5 mg PO BID 02/18/22 04/16/22 pravastatin 40 mg tablet 40 mg PO DAILY 02/18/22 04/16/22 terazosin 10 mg capsule 10 mg PO DAILY 02/18/22 04/16/22 Previous Rx's Medication Instructions Recorded cephalexin 500 mg capsule 500 mg PO BID 5 days #10 caps 10/25/23 Allergies Allergy/AdvReac Type Severity Reaction Status Date / Time INGREDIENT: NKDA - NO KNOWN Allergy Unknown Uncoded 04/16/22 14:04 DRUG ALLERGIES Review of Systems Constitutional Constitutional: Reports system reviewed and no additional complaints, except as documented Gastrointestinal Gastrointestinal: Reports system reviewed and no additional complaints, except as documented Genitourinary Genitourinary: Reports system reviewed and no additional complaints, except as documented Integumentary/Breasts Skin/Breast: Reports system reviewed and no additional complaints, except as documented Neurologic Neurologic: Reports system reviewed and no additional complaints, except as documented Patient History Social History Smoking Status: Never smoker Smoking Status: Never smoker alcohol intake frequency: holidays/special occasions only Substance Use Type: marijuana Exam Initial Vital Signs Initial Vital Signs: Vital Signs Temperature 99.3 F 10/25/23 18:10 Pulse Rate 79 10/25/23 18:10 Respiratory Rate 18 10/25/23 18:10 Blood Pressure 143/69 H 10/25/23 18:10 Pulse Oximetry 98 10/25/23 18:10 Oxygen Delivery Method Room Air 10/25/23 18:10 Const General: cooperative, comfortable and No ill appearing HENMT Head: normal to inspection and normocephalic GI Inspection: normal to inspection Neuro General: patient alert, patient awake and moves all extremities Course Orders Ordered: ED Orders 10/25/23 18:38 Urine Culture Stat Urine Microscopic Stat Discontinued Medications Cephalexin HCl (Cephalexin 250 Mg Capsule) 500 mg PO NOW ONE Stop: 10/25/23 19:38 Last Admin: 10/25/23 19:49 Dose: 500 mg Documented By: JULI Lidocaine HCl (Lidocaine 2% (Glydo) 6 Ml Gel) 6 ml TOP NOW ONE Stop: 10/25/23 18:40 Last Admin: 10/25/23 18:50 Dose: 6 ml Documented By: TC Vital Signs Vital signs: Vital Signs - 8 hr 10/25/23 18:10 10/25/23 19:44 10/25/23 19:54 Temperature 99.3 F Pulse Rate 79 75 62 Respiratory Rate 18 18 16 Blood Pressure 143/69 H 135/67 140/73 Pulse Oximetry 98 98 97 Oxygen Delivery Method Room Air Room Air Room Air Medical Decision Making Lab Data Lab results reviewed: Yes I reviewed the patient's lab results. Labs: Lab Results 10/25/23 Range/Units 18:38 Urine RBC 0-1/hpf (0-5/HPF) Urine WBC 30-100/hpf H (0-5/HPF) Ur Squamous Epith Cells None seen (0-5/HPF) Ur Transition Epith Cell 0-1/hpf (0-5/HPF) Urine Bacteria Many (>30) H (None) Ur Culture Indicated? Specimen cultured Vol Urine Centrifuged Low vol <1ml unspun A Urine Dip Bedside Urine Glucose 250 mg/dl Bedside Urine Bilirubin - Negative Bedside Urine Ketone - Negative Urine Specific [place] 1.025 Bedside Urine Occult Blood ++ Bedside Urine pH 6.0 Bedside Urine Protein +/- 15 Bedside Urine Urobilinogen - Negative Bedside Urine Nitrite + Positive Bedside Urine Leukocytes +++ 500 Esterase Point of care testing: Urine Dip Bedside Urine Glucose 250 mg/dl Bedside Urine Bilirubin - Negative Bedside Urine Ketone - Negative Urine Specific [place] 1.025 Bedside Urine Occult Blood ++ Bedside Urine pH 6.0 Bedside Urine Protein +/- 15 Bedside Urine Urobilinogen - Negative Bedside Urine Nitrite + Positive Bedside Urine Leukocytes +++ 500 Esterase MDM Narrative Medical decision making narrative: Urinalysis is nitrite positive and also has a other findings consistent with a urinary tract infection. Postvoid residual bladder scan shows greater than 400 cc of urine. A Proctor catheter was placed with return of greater than 600 cc. Patient states he is feeling much better. Was given a dose of antibiotics here in the ER. He understands that there is a urine culture pending at the time of his discharge and we will need to potentially change antibiotics based on this. Prescription for the remainder of the course of antibiotics was sent to the pharmacy of his choice. We will discharge with a Proctor catheter in place. He was given information for follow-up with Urology. He was given return precautions. He expressed understanding and agreement. Discharge Plan Departure Patient Disposition: Home Clinical Impression: Urinary tract infection, Acute retention of urine Instructions: How to Care for Your Proctor Catheter -- Male, DI for Urinary Tract Infection (UTI), DI for Urinary Retention in Men Activity Restrictions/Additional Instructions: I do recommend that you take the antibiotics as directed. Continue to take the rest of your medications as directed as well. Contact the Urology Department of the number provided below for a follow-up. Return to the emergency department for new symptoms. Prescriptions: New cephalexin 500 mg capsule 500 mg PO BID 5 Days Qty: 10 0RF No Action Fish Oil (#OMEGA-3 FISH OIL) 1,200 mg PO Qty: 0 CA PANTOTHENATE/FOLIC ACID/VIT (MULTIVITAMIN) 1 tab PO QDAY Qty: 0 cholecalciferol (vitamin D3) [Vitamin D3] 2,000 UNIT capsule 1,000 mg QDAY Qty: 0 amlodipine [Norvasc] 5 MG tablet 10 mg PO QDAY Qty: 0 hydrochlorothiazide 25 MG tablet 25 mg PO BID Qty: 0 DICLOFENAC SODIUM (VOLTAREN) 75 mg PO BID Qty: 0 ACETAMINOPHEN (#TYLENOL) 1,000 mg PO BID Qty: 0 metoprolol tartrate 25 mg tablet 12.5 mg PO BID pravastatin 40 mg tablet 40 mg PO DAILY terazosin 10 mg capsule 10 mg PO DAILY bupropion HCl 300 mg tablet extended release 24 hr 300 mg PO QAM bupropion HCl 150 mg tablet extended release 24 hr 150 mg PO QAM hydrocodone-acetaminophen 5-325 mg tablet 1 tab PO Q8H PRN Referrals: Dmitri Hartman MD [Physician] - Noel Guzman MD [Primary Care Provider] - Stand Alone Forms: Patient Portal/API
[2023-10-25] MEDS: LIDOCAINE 2% (GLYDO) 6 ML GEL TOP (18:50)
[2023-10-25 18:58] LABS: Urine Volume Low Vol <1mL unspun
[2023-10-25 18:59] LABS: Bacteria Urine Many (>30); Culture Indicated Urine Specimen Cultured; RBC Urine 0-1/HPF (0-5/HPF); Squamous Epithelial Cell Urine None Seen (0-5/HPF); Transitional Epi Cells Urine 0-1/HPF (0-5/HPF); WBC Urine 30-100/HPF (0-5/HPF)
--- NOTE | 2023-10-25 19:30 | PC.NURSE ---
Dr Alcantar in to talk with pt, pt states he is feeling better since gandhi insertion
[2023-10-25 19:44] VITALS: BP 135/67; PULSE 75; RESP 18; O2SAT 98
[2023-10-25] MEDS: cephALEXin 250 MG CAPSULE 500 MG PO (19:49)
[2023-10-25 19:54] VITALS: BP 140/73; PULSE 62; RESP 16; O2SAT 97
== END 2023-10-25 19:55 | disposition home or self-care (01) ==
PROVIDERS: Emergency Provider Emergency Medicine; PCP Family Medicine
DX: N39.0 Urinary tract infection, site not specified (principal); R33.8 Other retention of urine
CPT/HCPCS: 51798; 81003; 81015; 87077; 87086; 87186; 99283; 99284